=== PATIENT | male | born 1975 | race Caucasian/White ===

== ENCOUNTER 2019-01-11 14:20 | Outpatient (REF) | payer BC, SELFPAY ==
[2019-01-11 22:00] LABS: Bilirubin Negative (Negative); Blood Moderate (Negative); Clarity Clear; Glucose Negative (Negative); Ketones Negative (Negative); Leukocyte Esterase Moderate (Negative); Nitrite Positive (Negative); Specific Gravity 1.015 (1.005-1.025); Urobilinogen 0.2 EU/dL (Up TO 0.2); pH 7.5 (5-8)
[2019-01-11 22:48] LABS: WBC >50 HPF (0-5)
[2019-01-11 22:49] LABS: Epithelial Cells Negative HPF (Negative); Other Cells Few Renal (Negative); RBC Negative (0-2)
[2019-01-11 22:50] LABS: Bacteria Many HPF (Negative)
[2019-01-11 22:54] LABS: C & S Indicated? Yes; Casts Negative LPF (Negative); Crystals Negative HPF (Negative); Mucus Negative (Negative)
== END 2019-01-11 14:40 ==
LOC: NCHCN 14:20
PROVIDERS: PCP Nurse Practitioner Family; Visit Provider Nurse Practitioner Family
DX: R30.0 Dysuria (principal)
CPT/HCPCS: 81003; 81015; 87086

== ENCOUNTER 2019-02-22 14:53 | Outpatient (REF) | payer BC, SELFPAY ==
[2019-02-22 15:21] LABS: Bilirubin Negative (Negative); Blood Negative (Negative); Clarity Clear; Glucose Negative (Negative); Ketones Negative (Negative); Leukocyte Esterase Small (Negative); Nitrite Positive (Negative); Specific Gravity 1.025 (1.005-1.025); Urobilinogen 0.2 EU/dL (Up TO 0.2)
[2019-02-22 15:46] LABS: Bacteria Moderate HPF (Negative); C & S Indicated? C&S Done As Ordered; Casts Negative LPF (Negative); Crystals Negative HPF (Negative); Epithelial Cells Rare HPF (Negative); Mucus Trace (Negative); Other Cells Rare Renal (Negative); RBC Negative (0-2)
== END 2019-02-22 15:13 ==
LOC: NCHCN 14:53
PROVIDERS: PCP Nurse Practitioner Family; Visit Provider Nurse Practitioner Family
DX: R30.0 Dysuria (principal); Z87.440 Personal history of urinary (tract) infections
CPT/HCPCS: 81003; 81015; 87086

== ENCOUNTER 2019-12-19 21:10 | Inpatient (IN) | payer BC, SELFPAY ==
[2019-12-19] VITALS (7 sets, daily range): BP systolic 146–178; BP diastolic 59–82; PULSE 59–73; RESP 16; TEMP 36.7; O2SAT 95–100
--- NOTE | 2019-12-19 21:30 | DI.CT_ITS ---
EXAM: CT ABDOMEN PELVIS W CLINICAL HISTORY: RLQ pain and tenderness TECHNIQUE: Post IV contrast. Without oral contrast. COMPARISON: No exams were available for comparison FINDINGS: The appendix is dilated. There is stranding in the surrounding fat. There is a question of a small appendicolith at the base. There is a trace amount of adjacent fluid in the right pericolic gutter. There is no small bowel or colonic dilatation or wall thickening. There is no free air. The lung bases are clear. The heart size is normal. The liver shows mild fatty infiltration. Ther e is a 1 centimeter low-density lesion in the left lobe, too small to characterize. There is no bili kadi dilatation. The gallbladder, spleen, pancreas and adrenals are unremarkable. A tiny nonobstruct ing stone is noted in the right kidney. The aorta is normal in diameter. The urinary bladder is mariama ewhat distended. No mass or stones are seen. The prostate is unremarkable. There are no significan t bony abnormalities. IMPRESSION: Findings consistent with acute appendicitis. No abscess or perforation.
--- NOTE | 2019-12-19 21:36 | ED.GENADUL_ITS ---
Discharge Plan Disposition Patient Disposition: [facility] INPATIENT Condition: Serious Discharge Details Chief Complaint: Abd Prob Clinical Impression: Acute appendicitis, Acute urinary retention, Acute UTI Primary Care Provider: Beatrice Harrington ED Provider: Fredrick Hamilton Home Meds and New Rx's Prescriptions: No Action No Known Home Meds RF: 0 Medical Decision Making 44-year-old male presents with abdominal pain today worse over the past 2 hours and associated anorexia. Also with questionable blood in his stool. Patient is tender in his right lower quadrant with some rebound tenderness in that area. Abdomen not rigid. Negative Rovsing sign. Patient hemodynamically stable and does not appear septic. Labs reviewed and leukocytosis noted. Urinalysis concerning for UTI. Patient does have a history of intermittent urinary tract infections in the past. CT of the abdomen pelvis was interpreted by radiology: IMPRESSION: 1. Findings suspicious for acute appendicitis. 2. Tiny amount of free fluid in the right lower quadrant. No free air. 3. Small indeterminate lesion within the liver. 4. Tiny nonobstructing right renal calculus. 5. Distended bladder Plan to treat with metronidazole 500 mg IV and ceftriaxone 1 g IV. Patient also with urinary retention with greater than 800 cc noted on post void residual bladder scan by nursing. Nursing to Place Blandon catheter. I called and spoke with on-call surgeon, Dr. Fernandes, and we discussed ED presentation and course including diagnostic results. She recommends admission and will be placing admission orders. Care transitioned to Dr. Fernandes at 1120p at time of admission. HPI General Mode of arrival: ambulatory . Date/Time Provider Initiated Documentation: 12/19/19 21:22 . Limitations to Documentation: no limitations . Information obtained by: patient . HPI Narrative: 44-year-old male presents with chief complaint of abdominal pain. Patient notes abdominal pain started this morning and has persisted. Much worse over the past 2 hours. Patient states on car ride from [place] to [facility] just prior to arrival pain was much worse. Denies associated nausea or vomiting but does not have much of an appetite. He also states he thinks he had a small amount of blood in his stool earlier today. He states toilet water was red-tinged. Patient states he took ibuprofen earlier that did not significantly improve his pain. States that he has had intermittent urinary tract infections in the past. He states he has a urinary tract infection almost yearly. He did have some dysuria the other day that subsequently resolved. No increased urinary frequency or urgency. No hematuria. Related Data Home Medications Medication Instructions Recorded Confirmed Unknown [No Known Home Meds] 12/19/19 12/19/19 Allergies Allergy/AdvReac Type Severity Reaction Status Date / Time No Known Allergies Allergy Unverified 12/19/19 21:22 General Stated Complaint: Abd Prob WAYNE: 3 Review of Systems All systems reviewed & are unremarkable except as noted in HPI and below Constitutional Constitutional: Denies fever(s) Gastrointestinal Gastrointestinal: Reports as per HPI, Denies nausea and Denies vomiting Genitourinary Genitourinary: Reports as per HPI [facility] Social History Smoking/Tobacco Use Status: Never Drug use: Never Substance use type: does not use Do you feel safe at home: Yes Exam Const General: cooperative and no acute distress HENMT Mouth: moist mucous membranes Eyes Conjunctivae: normal conjunctivae Sclera: normal sclerae Resp Auscultation: clear to auscultation bilaterally, no rales, no rhonchi and no wheezes Cardio Jugular venous pressure: no JVD Rate: regular rate and not tachycardic Rhythm: regular rhythm GI Inspection: non-distended Palpation: soft, not firm, no guarding, no masses, not rigid and tender in the RLQ and with rebound tenderness Auscultation: normal bowel sounds Skin General skin exam: no rashes or lesions noted Neuro General: alert, awake and tone normal Extrem General: no edema Psych Appearance: grossly normal Mental Status: mental status grossly normal Course Vital Signs Vital signs: Vital Signs Temperature 36.7 C 12/19/19 21:14 Pulse 59 L 12/19/19 21:14 Respiratory Rate 16 12/19/19 21:14 Blood Pressure 163/70 H 12/19/19 21:14 Pulse Oximetry 100 12/19/19 21:14 Temperature 36.7 C 12/19/19 21:14 Temperature Source Skin 12/19/19 21:14 Pulse 59 L 12/19/19 21:14 Respiratory Rate 16 12/19/19 21:14 Respiratory Effort 12/19/19 21:14 Blood Pressure 163/70 H 12/19/19 21:14 Pulse Oximetry 100 12/19/19 21:14 Oxygen Delivery Method Room Air 03/02/20 21:14 Oxygen Flow Rate 0 12/19/19 21:14 Pain Level 8 12/19/19 21:14
[2019-12-19] MEDS: Lactated Ringers 1,000 ML 125 ML IV (21:45)
[2019-12-19 21:46] LABS: Abs Immature Grans 0.04 k/cumm (0.0-0.09); Absolute Basophil Count 0.03 k/cumm (0.0-0.2); Absolute Eosinophil Count 0.71 k/cumm (0.0-0.7); Absolute Monocyte Count 1.51 k/cumm (0.11-0.7); Basophils % 0.2; Eosinophils % 5.2; HCT 42.9 % (40.0-50.0); HGB 15.1 g/dL (13.5-17.5); Immature Grans % 0.3 %; Lymphocytes % 12.8; Mean Corp. HGB Concentration 35.2 g/dL (32.0-36.0); Mean Corpuscular Hemoglobin 28.8 pg (27.0-33.0); Mean Corpuscular Volume 81.9 fL (80-95); Mean Platelet Volume 9.8 fL (8.0-11.0); Monocytes % 11.1; Neutrophils % 70.4; Platelet Count 217 x1000/uL (130-400); RBC 5.24 m/cumm (4.50-6.00); RBC Distribution Width 13.1 % (11.8-14.1); White Blood Cell Count 13.62 k/cumm (4.4-10.8)
[2019-12-19] MEDS: Ondansetron 4 MG/2 ML VIAL IVP (21:46)
[2019-12-19 21:47] LABS: Absolute Lymphocyte Count 1.74 k/cumm (1.2-3.4); Absolute Neutrophil Count 9.59 k/cumm (1.2-6.7)
[2019-12-19] MEDS: Omnipaque 350 MG/ML 100 ML BTL IJ (21:53)
[2019-12-19 21:56] LABS: Lipase 152 U/L (73-393)
--- NOTE | 2019-12-19 21:57 | NUR.NOTE ---
Nursing Note: [id number]- Urine collected and sent to lab.
[2019-12-19 21:59] LABS: ALT 56 U/L (16-63); AST 26 U/L (15-37); Albumin 4.2 g/dL (3.4-5.0); Alkaline Phosphatase 77 U/L (46-116); Anion Gap 7.2 mmol/L (3-11); BUN 14 mg/dL (7-18); Bilirubin, Total 0.4 mg/dL (0.2-1.0); CO2 28.8 mmol/L (21.0-32.0); CREATININE 1.09 mg/dL (0.70-1.30); Calcium 8.6 mg/dL (8.5-10.1); Chloride 105 mmol/L (98-107); Diff Comment Agrees w/ Instrument; Glucose 106 mg/dL (74-106); Potassium 4.2 mmol/L (3.5-5.1); RBC Morphology Normal; Sodium 141 mmol/L (136-145); Total Protein 7.3 g/dL (6.4-8.2)
[2019-12-19 22:01] LABS: Bilirubin Negative (Negative); Blood Negative (Negative); Clarity Cloudy (Clear); Glucose Negative (Negative); Ketones Negative (Negative); Leukocyte Esterase Large (Negative); Nitrite Negative (Negative); Specific Gravity 1.025 (1.005-1.025); Urobilinogen 0.2 EU/dL (Up TO 0.2)
[2019-12-19] MEDS: Normal Saline - Diluent 50 ML VIAL IV (22:06)
[2019-12-19 22:11] LABS: Epithelial Cells Few HPF (Negative); WBC >50 HPF (0-5)
[2019-12-19 22:12] LABS: Bacteria Many HPF (Negative); C & S Indicated? Yes
--- NOTE | 2019-12-19 22:59 | DI.VRAD_ITS ---
Addendum created by Cl Pollock MD on 12/19/2019 11:11:41 PM EST THIS REPORT CONTAINS FINDINGS THAT MAY BE CRITICAL TO PATIENT CARE. The findings were verbally communicated via telephone conference with JOELLE RICHARD at 11:11 PM EST on 12/19/2019. The findings were acknowledged and understood. Initial report created on 12/19/2019 10:58:32 PM EST PROCEDURE INFORMATION: Exam: CT Abdomen And Pelvis With Contrast Exam date and time: 12/19/2019 9:32 PM Age: 44 years old Clinical indication: Abdominal pain; Localized; Right lower quadrant (rlq); Patient HX: Per PT: Vomiting all day; Rlq pain TECHNIQUE: Imaging protocol: Computed tomography of the abdomen and pelvis with intravenous contrast. COMPARISON: No relevant prior studies available. FINDINGS: Liver: A 1.2 cm nonspecific hypodensity is seen within the left hepatic lobe, series 4, image 20. Gallbladder and bile ducts: Normal. No calcified stones. No ductal dilation. Pancreas: Normal. No ductal dilation. Spleen: Normal. No splenomegaly. Adrenals: Normal. No mass. Kidneys and ureters: No hydronephrosis. Tiny nonobstructing right renal calculus. Stomach and bowel: No bowel obstruction. Appendix: The appendix is mildly dilated measuring 1.1 cm. There is probably a tiny appendicolith at the base. There is moderate adjacent fat stranding with a tiny amount of free fluid in the right lower quadrant. Intraperitoneal space: No free air. Vasculature: Unremarkable. No abdominal aortic aneurysm. Lymph nodes: Unremarkable. No enlarged lymph nodes. Bladder: The bladder is distended. Reproductive: Unremarkable as visualized. Bones/joints: Unremarkable. No acute fracture. Soft tissues: Unremarkable. IMPRESSION: 1. Findings suspicious for acute appendicitis. 2. Tiny amount of free fluid in the right lower quadrant. No free air. 3. Small indeterminate lesion within the liver. 4. Tiny nonobstructing right renal calculus. 5. Distended bladder Dictated and Authenticated by: Cl Pollock MD. Ordering:HERBERT Alcala MD
--- NOTE | 2019-12-19 23:20 | HPE_ITS ---
Date of service: 12/20/19 Time of Service: 07:30 Assessment and Plan Assessment and plan (1) Acute appendicitis: Status: Acute Assessment and plan: see CT pt will be taken for lap appy pre op rochephin Informed consent is obtained for the procedural (explained in simple layman's terms that the pt and/or family could understand) explaining risks vs benefits and alternatives to the procedure and consequences if we do not do the procedure. Risks include but are not limited to:bleeding,infections, pneumonia, blood clots/DVT/PE, anesthesia(aspiration, damage to teeth/airway/[place]/CVA//prolonged mechanical ventilation/PTX/IV infections), damage to bowel, bladder,blood vessels, ureters, bile ducts. Damage to solid organs requiring removal. Leakage from anastomosis requiring colostomy/ Wound i nfections requirng further surgery. stump appendicitis. Scarring and disfigurement. Subsequent bowel obstructions from scar tissue. Possible open procedure if minimaly invsive procedure is being attempted. (2) Acute urinary retention: Status: Acute (3) Acute UTI: Status: Acute History of Present Illness Consults Consult date: 12/20/19 Requesting physician: Fredrick Hamilton Narrative: pt came to the ED w/ RLQ pain. + nayse and fever. He has never had GI problems in the past. He denies any trauma pt could not urinate in the ED, so mendoza was placed. Unclear as to why he cannot void. He has not had problems in the past w/ voiding. His UA does show high amount of WBC's- unclear if this represents a UTI, or just from the appendix touching the ureter. WIll leave mendoza in place until appendectomy. [facility] Social History Smoking/Tobacco Use Status: Never Drug use: Never Substance use type: does not use Do you feel safe at home: Yes Meds Home Medications and Allergies Home Medications Medication Instructions Recorded Confirmed Type Unknown [No Known Home Meds] 12/19/19 12/19/19 History Allergies Allergy/AdvReac Type Severity Reaction Status Date / Time No Known Allergies Allergy Unverified 12/19/19 21:22 Exam Const General: cooperative, healthy appearing, comfortable, no acute distress, well developed and well groomed Nutritional Appearance: average body habitus and well nourished Orientation: alert, awake and oriented x3 [facility] Head: normal to inspection, normocephalic and atraumatic Ears: hearing grossly normal bilaterally and external ears normal General nose exam: external nose normal Face and sinus: normal facial exam and sinuses nontender Mouth: oral mucosae normal, lip normal, tongue normal and moist mucous membranes Teeth and gingiva: dentition normal Eyes General: appearance normal, both eyes and all related structures Conjunctivae: conjunctivae normal Sclera: sclerae normal Pupils: PERRL Neck Neck: normal visual inspection and full ROM Chest Chest: normal inspection of the chest Resp Effort & Inspection: normal respiratory effort, able to speak in complete sentences, no cough, no nasal flaring, not tachypneic and no use of accessory muscles Auscultation: clear to auscultation bilaterally, no rales, no rhonchi and no whe ezes Cardio Jugular venous pressure: no JVD Rate: regular rate Rhythm: regular rhythm GI Inspection: normal to inspection, no edema and non-distended Palpation: soft, no masses, nontender and No ascites Auscultation: normal bowel sounds Other: localized rlq rebound and guarding. sm umbilical hernia Skin General skin exam: no rashes or lesions noted Trauma: no lacerations or abrasions Neuro General: alert, oriented x3, oriented, gait normal, moves all extremities, no focal motor deficits and CN's II-XI intact bilaterally Cognition: normal cognition Speech: speech normal Gait: normal gait Motor: muscle tone normal throughout Extrem General: normal to inspection, full ROM and no clubbing, cyanosis or edema Psych Appearance: grossly normal and well kempt Mental Status: mental status grossly normal Speech and Movement: speech and movement normal Affect: normal affect Results Labs Result diagrams: 12/19/19 21:40 12/19/19 21:40 Labs: Laboratory Results - last 24 hr 12/19/19 12/19/19 12/19/19 21:40 21:40 21:40 WBC 13.62 H RBC 5.24 Hgb 15.1 Hct 42.9 MCV 81.9 MCH 28.8 MCHC 35.2 RDW 13.1 Plt Count 217 MPV 9.8 Immature Gran % 0.3 Neutrophils % 70.4 Lymphocytes % 12.8 Monocytes % 11.1 Eosinophils % 5.2 Basophils % 0.2 Absolute Neutrophils 9.59 H Absolute Lymphocytes 1.74 Absolute Monocytes 1.51 H Absolute Eosinophils 0.71 H Absolute Basophils 0.03 Differential Comment Agrees w/ instrument RBC Morphology Normal Sodium 141 Potassium 4.2 Chloride 105 Carbon Dioxide 28.8 Anion Gap 7.2 BUN 14 Creatinine 1.09 Estimated GFR/1.73 m2 >= 60.00 Glucose 106 Calcium 8.6 Total Bilirubin 0.4 AST 26 ALT 56 Alkaline Phosphatase 77 Total Protein 7.3 Albumin 4.2 Lipase 152 Urine Color Urine Clarity Urine pH Ur Specific [place] Urine Protein Urine Ketones Urine Blood Urine Nitrite Urine Bilirubin Urine Urobilinogen Ur Leukocyte Esterase Urine RBC Urine WBC Ur Epithelial Cells Urine Crystals Urine Bacteria Urine Mucus Ur Culture Indicated? Urine Glucose 12/19/19 21:50 WBC RBC Hgb Hct MCV MCH MCHC RDW Plt Count MPV Immature Gran % Neutrophils % Lymphocytes % Monocytes % Eosinophils % Basophils % Absolute Neutrophils Absolute Lymphocytes Absolute Monocytes Absolute Eosinophils Absolute Basophils Differential Comment RBC Morphology Sodium Potassium Chloride Carbon Dioxide Anion Gap BUN Creatinine Estimated GFR/1.73 m2 Glucose Calcium Total Bilirubin AST ALT Alkaline Phosphatase Total Protein Albumin Lipase Urine Color Yellow Urine Clarity Cloudy Urine pH 7.0 Ur Specific [place] 1.025 Urine Protein Negative Urine Ketones Negative Urine Blood Negative Urine Nitrite Negative Urine Bilirubin Negative Urine Urobilinogen 0.2 Ur Leukocyte Esterase Large H Urine RBC Not Applicable Urine WBC >50 H Ur Epithelial Cells Few Urine Crystals Not Applicable Urine Bacteria Many Urine Mucus Not Applicable Ur Culture Indicated? Yes Urine Glucose Negative Last Vital Signs Temp 36.7 C 12/19/19 21:14 Pulse 73 12/19/19 22:08 Resp 16 12/19/19 21:14 BP 178/82 H 12/19/19 22:08 Pulse Ox 98 12/19/19 22:08
[2019-12-19] MEDS: cefTRIAXone 1 GM/50 ML BAG IVPB (23:27)
[2019-12-19] MEDS: metroNIDAZOLE 500 MG/100 ML BAG 100 MG IVPB (23:55)
--- NOTE | 2019-12-19 23:58 | NUR.NOTE ---
Nursing Note: Pain medication offered, Pt states he doesn't think he needs any right now.
[2019-12-20] VITALS (22 sets, daily range): BP systolic 106–171; BP diastolic 54–77; PULSE 52–117; RESP 16–22; TEMP 36.3–38.5; O2SAT 92–100
[2019-12-20] MEDS: MORPHine 2 MG/ML SYR IVP (01:20)
[2019-12-20] MEDS: Normal Saline Flush 10 ML SYR IVP ×2 (01:21→08:02)
[2019-12-20] MEDS: Normal Saline 1,000 ML 125 ML IV ×2 (01:22→22:50)
[2019-12-20] MEDS: ACETAMINOPHEN 1,000 MG/100 ML BTL 400 MG IVPB ×3 (01:45→18:37)
[2019-12-20] MEDS: metroNIDAZOLE 500 MG/100 ML BAG 100 MG IVPB ×2 (08:02→16:51)
[2019-12-20] MEDS: Lactated Ringers 1,000 ML 125 ML IV (10:10)
[2019-12-20] MEDS: cefTRIAXone 1 GM/50 ML BAG IVPB (10:24)
[2019-12-20] MEDS: Bupivacaine 0.25% Pres-Free 30 ML VIAL (10:25)
[2019-12-20] MEDS: EPINEPHrine 1 MG/ML AMP pres-free (10:25)
--- NOTE | 2019-12-20 10:42 | INITIAL_ITS ---
Care Management Initial Assess REASON FOR HOSPITALIZATION:: Acute appendicitis, Acute urinary retention, Acute UTI-Laparoscopic Appendectomy PAST MEDICAL HISTORY/PAST SURGICAL HISTORY:: Tonsillectomy PREVIOUS FUNCTIONAL STATUS/SOCIAL/FAMILY SUPPORTS:: Felipe resides in [place] with his significant other, Katie and two children. He is independent at baseline in the community. CURRENT FUNCTIONAL STATUS:: Felipe was brought for surgery this morning, and was not available in the room for CM assessment. CM will continue to follow. ADVANCE DIRECTIVES:: None on file at [facility]. Has patient been provided with information about the portal?: No Did the patient sign up for the portal?: No CODE STATUS:: Full Code INSURANCE COVERAGE / FINANCIAL ISSUES:: BC/BS [place] CURRENT HOME/COMMUNITY SERVICES/EQUIPMENT:: No current services or equipment. PRIMARY CARE PHYSICIAN:: Beatrice Harrington POTENTIAL DISCHARGE NEEDS:: Follow up appointment with PCP. PATIENT/FAMILY EDUCATION NEEDS:: Review of discharge instructions, discuss Ask Me Three. ANTICIPATED BARRIERS TO DISCHARGE:: None identified. TRANSPORTATION:: Via private vehicle with his significant other, Katie. PLAN:: Felipe will return home when ready per MD. He will follow up with his PCP and plan of care as prescribed. He will transport via private vehicle with his significant other, Katie.
--- NOTE | 2019-12-20 11:01 | APP_PTH ---
PATIENT: Felipe Lanedros LOC: U#:[id number] AGE/SX: 44/M ROOM: RE12/19/[address]: Chelsi Fernandes : 1975 BED: A DIS: 12/21/2019 SPEC #: [id number] RECD: 12/20/19 12:52 STATUS: ELEANOR REQ #: [id number] CUONG: 12/20/19 11:[address]: Chelsi Fernandes DEPT: Surgical Specimen RECD BY: Germaine Raymond ENTERED: 12/20/19 12:53 SP TYPE: Appendix OTHR DR: Beatrice Harrington Tissues: 1 - APPENDIX NOT INCIDENTAL Procedures: GROSS AND MICRO LEVEL 3 Comments: [id number]
--- NOTE | 2019-12-20 11:45 | W.PM.OP ---
Date of service: 12/20/19 Time of Service: 11:45 Operative Note Operative Note DATE OF PROCEDURE: 12/20/19 PRE-OP DIAGNOSIS: acute appendicitis POST-OP DIAGNOSIS: other (Incidental umbilical hernia) retro cecal PROCEDURE: lindsay granadosy SURGEON: Virginia Christensen CIGAR MAKING MACHINE OPERATOR: Virginia Kilpatrick ANESTHESIA: [place]incy ESTIMATED BLOOD LOSS: 10 PATHOLOGY: other COMPLICATIONS: None Procedure Description: COMPLICATIONS: The patient tolerated the procedure well without complications. INDICATIONS: The patient has signs and symptoms compatible with acute appendicitis and is brought to the OR for laparoscopic appendectomy, possible open procedure. Informed consent is obtained for the procedural (explained in simple layman's terms that the pt and/or family could understand) explaining risks vs benefits and alternatives to the procedure and consequences if we do not do the procedure. Risks include but are not limited to:bleeding,infections, pneumonia, blood clots/DVT/PE, anesthesia(aspiration, damage to teeth/airway/[place]/CVA//prolonged mechanical ventilation/PTX/IV infections), damage to bowel, bladder,blood vessels, ureters. Damage to solid organs requiring removal. Infertility. Leakage from anastomosis requiring colostomy. Wound infections requirng further surgery. Scarring and disfigurement. Subsequent bowel obstructions from scar tissue. Possible open procedure if minimaly invsive procedure is being attempted. Abscess and stump appendicitis as well as others. DESCRIPTION OF PROCEDURE: The patient was brought to the operating room suite and placed in supine position. Anesthesia was administered per the Department of Anesthesia. A Blandon catheter and OG tube are placed. The patient was prepped and draped in the usual sterile fashion using ChloraPrep scrub solution. Pause for the cause was done. 30 mL of 1% buffered was used for local anesthetization. Does have a small umbilical hernia. A small incision was made with #11 blade in the umbilicus. Hemostat was used to dissect down into the abdomen and fingers placed there is no adhesions #5 trochars placed in the abdomen insufflation was begun. Camera inserted through the port shows no damage to underlying structures. Bowel, liver and stomach that are visualized are normal in appearance. Pelvic organs are not visualized. The appendix is inflamed, erythematous,enlarged, & distened, but does not appear to have been ruptured. There is no purulent drainage in the pelvis. A 12 mm port was then placed in the suprapubic position under direct visualization following creation of a local field block as well as a second 5 mm port in the LLQ. The appendix is very retrocecal. A scissors is used to open the white line of Toldt, and the cecum is reflected medially. the Peritoneum was taken down with a combination of sharp and blunt dissection. Eventually the appendix is freed up. And we are able to carry out procedure. Urinary retention and the white cells in the urine are probably from the appendix being adjacent to the ureter. The appendix is elevated and a rent dissected into the mesentery. The base of the appendix is healthy and will hold aliyah. A Endo-MONICA stapler is placed across the base of the appendix and fired and 2nd stapler placed across the mesentery and fired. The appendix is placed in a bag and brought out. There is no bleeding or enteric leakage from the staple lines. The pt does not require a drain. The abdomen was copiously irrigated with a liter of saline. All saline is evacuated. The scope and ports are removed. Pneumoperitoneum is evacuated. The fascia under the 12 mm port is closed with 0 Vicryl. The small umbilical hernia was closed with 2 stitches of 0 Vicryl. There was no bleeding from the port sites as when they removed and the pneumoperitoneum evacuated. The wounds were copiously irrigated and closed in 2 layers with 4-0 Monocryl. Sterile tape and sterile dressings are applied. The patient tolerated the procedure without complication, transferred to the recovery room in stable condition. Family was apprised of patient condition. VIRGINIA CHRISTENSEN DO Cc: _
[2019-12-20] MEDS: fentaNYL 100 MCG/2 ML VIAL IVP (11:50)
[2019-12-20] MEDS: Droperidol 5 MG/2 ML VIAL 0.625 MG IVP (11:55)
--- NOTE | 2019-12-20 12:55 | W.PM.DS.N ---
Documented by User: Chelsi Fernandes DO 12/22/19 10:34 Date of service: 12/20/19 DS: Diagnosis Discharge Diagnosis (1) Acute appendicitis: Status: Acute (2) Acute urinary retention: Status: Deleted (3) Acute UTI: Status: Acute Discharge Plan Disposition Patient Disposition: HOME Condition: Serious Discharge Details Chief Complaint: Abd Prob Clinical Impression: Acute appendicitis, Acute urinary retention, Acute UTI Reason For Visit: APPENDICITIS Admit Date/Time: 12/19/19 23:24 Admit Provider: Chelsi Fernandes Attending Provider: Chelsi Fernandes Primary Care Provider: Beatrice Harrington ED Provider: Fredrick Hamilton Hospital Course Hospital Course: Mr. Landeros is a pleasant 44 year old male POD #1 s/p Lap. Appi for acute appendicitis. He has done well after surgery. He is eating and drinking without N/V. His pain is well controlled on tylenol and ibuprofen. He did have some de-saturations but has a history of sleep apnea. This morning he is off O2 and doing well. No cough or chest congestion. Patient also noted to have a possible UTI. Mixed Elyse >100,000 count. HAs history of urinary retention and UTI's. CXR done and was normal Patient will be discharged on antibiotics to cover his appendicitis as well as his ? UTI. referal made to Urology as well Home Meds and New Rx's Prescriptions: New ciprofloxacin HCl 500 mg tablet 500 mg PO BID Qty: 12 RF: 0 metronidazole 500 mg tablet 500 mg PO Q8H Qty: 18 RF: 0 acetaminophen [Tylenol Extra Strength] 500 mg tablet 500 mg PO Q6H PRN (Reason: fever or pain) Qty: 30 RF: 0 ibuprofen 600 mg tablet 600 mg PO Q6H PRN (Reason: fever or pain) Qty: 30 RF: 0 Discharge Instructions Instructions: Laparoscopic Appendectomy (DC) Additional Instructions: Keep an ice bag on the incision. 20 minutes on and 20 minutes off. Ice keeps the swelling down and swelling causes pain. Make sure you wrap the ice pack in a towel and don't apply directly to the skin. -No driving x 72hrs or of you are taking narcotic pain medications. -If you have aliyah or sutures in place, they will be removed at your clinic appointment in 7-10 days. -Follow-up with Dr. Fernandes in 1 week. -soft/regular diet -no straining to move bowels -pain meds are very constipating: if you do not move your bowels daily take a dose of OTC milk of magnesia -It is ok to shower. No bathe, soaking, swimming or hot tubs -Keep wound clean and dry. Wash incision with soap and water daily. Pat dry, don't rub. -You may find that your appetite is smaller. Eat 3-6 small meals throughout the day. It is important to drink lots of water after surgery, 6-10 glasses a day. -If you were given an incentive spirometry (\breathing trial management associate), continue to do this 10x/hour while awake. -We do want you up walking, at least 5-6 times per day. This is very important to prevent pneumonia and blood clots. You can climb stairs, take them slowly. -No lifting over 5 pounds. This is very important to avoid developing a hernia in your incision. -You may find that you are very tired after surgery- this is normal. -please do not smoke for a minimum of 72 hours after surgery. -If you notice: fever > 100.5, chest pain or shortness of breath, redness/swelling/bleeding from the incision, pain that is becoming worse- go to the ER. Stand Alone Forms: Nursing Discharge Form Referrals: Adali Waggoner NP [NURSE PRACTITIONER] - 12/26/19 3:00 pm Chelsi Fernandes DO [OSTEOPATHIC DOCTOR] - 12/28/19 9:30 am Activity:: no lifting >20 lb x 2 weeks Equipment/Supplies:: No Equipment Needed Diet:: As Tolerated Discharge Orders Discharge Orders: Discharge Order (Routine); Ordered 12/21/19 Ordered By: Dinorah Madden Discharge Data Discharge Date/Time-TO BE ENTERED AT DEPARTURE: 12/21/19 12:05 DS: Data Vitals/I&O Vitals and I&O: Vital Signs Temperature 36.8 C 12/20/19 12:44 Temperature Source Tympanic 12/20/19 07:35 Pulse 63 12/20/19 12:44 Pulse Rhythm Regular 12/20/19 01:24 Respiratory Rate 17 12/20/19 12:44 Respiratory Effort 12/20/19 01:24 Respiratory Depth Normal 12/20/19 01:24 Respiratory Pattern Normal 12/20/19 01:24 Blood Pressure 128/60 12/20/19 12:44 Blood Pressure Mean 72 12/20/19 00:31 Pulse Oximetry 94 L 12/20/19 12:44 Respiratory End-tidal CO2 37 12/20/19 12:30 Oxygen Delivery Method Room Air 12/20/19 12:44 Oxygen Flow Rate 0 12/20/19 12:44 Pain Level 1 12/20/19 12:44 Intake & Output 12/19/19 12/20/19 12/20/19 23:59 11:59 23:59 Intake Total 1050 / 1050 2520 / 2520 Output Total 1025 / 1025 1675 / 1675 Balance 845 / 845 Weight 104.326 kg 104.5 kg Intake: IV 1050 / 1050 2520 / 2520 Output: Urine 1025 / 1025 1675 / 1675 Other: Urine Color Light Fabiana Yellow Urine Appearance Sediment Clear Urine Odor None Comment Dr Hamilton informed. Orders given Emesis Description None None Voiding Methods Indwelling Catheter Data Completed and Pending Labs on day of discharge: Labs from last 24 hours 12/19/19 12/19/19 12/19/19 21:50 21:40 21:40 WBC 13.62 H RBC 5.24 Hgb 15.1 Hct 42.9 MCV 81.9 MCH 28.8 MCHC 35.2 RDW 13.1 Plt Count 217 MPV 9.8 Immature Gran % 0.3 Neutrophils % 70.4 Lymphocytes % 12.8 Monocytes % 11.1 Eosinophils % 5.2 Basophils % 0.2 Absolute Neutrophils 9.59 H Absolute Lymphocytes 1.74 Absolute Monocytes 1.51 H Absolute Eosinophils 0.71 H Absolute Basophils 0.03 Differential Comment Agrees w/ instrument RBC Morphology Normal Sodium 141 Potassium 4.2 Chloride 105 Carbon Dioxide 28.8 Anion Gap 7.2 BUN 14 Creatinine 1.09 Estimated GFR/1.73 m2 >= 60.00 Glucose 106 Calcium 8.6 Total Bilirubin 0.4 AST 26 ALT 56 Alkaline Phosphatase 77 Total Protein 7.3 Albumin 4.2 Lipase Urine Color Yellow Urine Clarity Cloudy Urine pH 7.0 Ur Specific [place] 1.025 Urine Protein Negative Urine Ketones Negative Urine Blood Negative Urine Nitrite Negative Urine Bilirubin Negative Urine Urobilinogen 0.2 Ur Leukocyte Esterase Large H Urine RBC Not Applicable Urine WBC >50 H Ur Epithelial Cells Few Urine Crystals Not Applicable Urine Bacteria Many Urine Mucus Not Applicable Ur Culture Indicated? Yes Urine Glucose Negative 12/19/19 21:40 WBC RBC Hgb Hct MCV MCH MCHC RDW Plt Count MPV Immature Gran % Neutrophils % Lymphocytes % Monocytes % Eosinophils % Basophils % Absolute Neutrophils Absolute Lymphocytes Absolute Monocytes Absolute Eosinophils Absolute Basophils Differential Comment RBC Morphology Sodium Potassium Chloride Carbon Dioxide Anion Gap BUN Creatinine Estimated GFR/1.73 m2 Glucose Calcium Total Bilirubin AST ALT Alkaline Phosphatase Total Protein Albumin Lipase 152 Urine Color Urine Clarity Urine pH Ur Specific [place] Urine Protein Urine Ketones Urine Blood Urine Nitrite Urine Bilirubin Urine Urobilinogen Ur Leukocyte Esterase Urine RBC Urine WBC Ur Epithelial Cells Urine Crystals Urine Bacteria Urine Mucus Ur Culture Indicated? Urine Glucose Preliminary micro results at discharge 12/19/19 21:50 Urine Culture - Preliminary Urine - Reflex from Ua Gram Positive Elyse,Mixed PFSH Medical History (Updated 12/21/19 @ 10:00 by Dinorah Madden MD) Sleep apnea (Acute) Urinary retention with incomplete bladder emptying (Acute) Surgical History (Updated 12/21/19 @ 11:23 by Dinorah Maddne MD) S/P laparoscopic appendectomy (Acute ~12/19/19) Social History Smoking/Tobacco Use Status: Never Drug use: Never Substance use type: does not use Do you feel safe at home: Yes Documented by User: Dinorah Madden MD 12/21/19 11:24 Date of service: 12/21/19 Time of Service: 09:59 Discharge Plan Disposition Patient Disposition: HOME Condition: Serious Discharge Details Chief Complaint: Abd Prob Clinical Impression: Acute appendicitis, Acute urinary retention, Acute UTI Reason For Visit: APPENDICITIS Admit Date/Time: 12/19/19 23:24 Admit Provider: Chelsi Fernandes Attending Provider: Chelsi Fernandes Primary Care Provider: Beatrice Harrington ED Provider: Fredrick Hamilton Hospital Course Hospital Course: Mr. Landeros is a pleasant 44 year old male POD #1 s/p Lap. Appi for acute appendicitis. He has done well after surgery. He is eating and drinking without N/V. His pain is well controlled on tylenol and ibuprofen. He did have some de-saturations but has a history of sleep apnea. This morning he is off O2 and doing well. No cough or chest congestion. Patient also noted to have a possible UTI. Mixed Elyse >100,000 count. HAs history of urinary retention and UTI's. CXR done and was normal Patient will be discharged on antibiotics to cover his appendicitis as well as his ? UTI. referal made to Urology as well Home Meds and New Rx's Prescriptions: New ciprofloxacin HCl 500 mg tablet 500 mg PO BID Qty: 12 RF: 0 metronidazole 500 mg tablet 500 mg PO Q8H Qty: 18 RF: 0 acetaminophen [Tylenol Extra Strength] 500 mg tablet 500 mg PO Q6H PRN (Reason: fever or pain) Qty: 30 RF: 0 ibuprofen 600 mg tablet 600 mg PO Q6H PRN (Reason: fever or pain) Qty: 30 RF: 0 Discharge Instructions Instructions: Laparoscopic Appendectomy (DC) Additional Instructions: Keep an ice bag on the incision. 20 minutes on and 20 minutes off. Ice keeps the swelling down and swelling causes pain. Make sure you wrap the ice pack in a towel and don't apply directly to the skin. -No driving x 72hrs or of you are taking narcotic pain medications. -If you have aliyah or sutures in place, they will be removed at your clinic appointment in 7-10 days. -Follow-up with Dr. Fernandes in 1 week. -soft/regular diet -no straining to move bowels -pain meds are very constipating: if you do not move your bowels daily take a dose of OTC milk of magnesia -It is ok to shower. No bathe, soaking, swimming or hot tubs -Keep wound clean and dry. Wash incision with soap and water daily. Pat dry, don't rub. -You may find that your appetite is smaller. Eat 3-6 small meals throughout the day. It is important to drink lots of water after surgery, 6-10 glasses a day. -If you were given an incentive spirometry (\breathing trial management associate), continue to do this 10x/hour while awake. -We do want you up walking, at least 5-6 times per day. This is very important to prevent pneumonia and blood clots. You can climb stairs, take them slowly. -No lifting over 5 pounds. This is very important to avoid developing a hernia in your incision. -You may find that you are very tired after surgery- this is normal. -please do not smoke for a minimum of 72 hours after surgery. -If you notice: fever > 100.5, chest pain or shortness of breath, redness/swelling/bleeding from the incision, pain that is becoming worse- go to the ER. Stand Alone Forms: Nursing Discharge Form Referrals: Adali Waggoner NP [NURSE PRACTITIONER] - 12/26/19 3:00 pm Chelsi Fernandes DO [OSTEOPATHIC DOCTOR] - 12/28/19 9:30 am Activity:: no lifting >20 lb x 2 weeks Equipment/Supplies:: No Equipment Needed Diet:: As Tolerated Discharge Orders Discharge Orders: Discharge Order (Routine); Ordered 12/21/19 Ordered By: Dinorah Madden Discharge Data Discharge Date/Time-TO BE ENTERED AT DEPARTURE: 12/21/19 12:05 DS: Summary Status at Discharge Functional status at discharge: independent ambulation Overall status at discharge: patient is progressing back to baseline Mental Status: mental status grossly normal Speech and Movement: speech and movement normal Mood: congruent mood Affect: normal affect Exam Psych Mental Status: mental status grossly normal Speech and Movement: speech and movement normal Mood: congruent mood Affect: normal affect [facility] Medical History (Updated 12/21/19 @ 10:00 by Dinorah Madden MD) Sleep apnea (Acute) Urinary retention with incomplete bladder emptying (Acute) Surgical History (Updated 12/21/19 @ 11:23 by Dinorah Madden MD) S/P laparoscopic appendectomy (Acute ~12/19/19) Social History Smoking/Tobacco Use Status: Never Drug use: Never Substance use type: does not use Do you feel safe at home: Yes
[2019-12-20] MEDS: Ketorolac 30 MG/ML VIAL IVP ×2 (15:18→21:29)
--- NOTE | 2019-12-20 18:21 | PGE_ITS ---
Date of Service Date of service: 12/20/19 Time of Service: 15:00 Assessment and Plan Assessment and plan (1) Acute appendicitis: Status: Acute Assessment and plan: -urinary retention resolved -pt does have a hx of UTI's - so will continue abx for another does. Rocephin should cover. -cont hydration pulm toilet encourage walking routine postOp care pt still tired/sleepy and mild nausea. Will keep in hosp overn night. Subjective Subjective Interval history since last seen: pt is feeling better. Nausea has subsided. He has been able to turinate x2. He is tolerating sips of liquids and c/o dry mouth. He is just started to wake up from anesthesia. He does admit he is very tired- he got no sleep last night. He is still on 1l O2. encourage pulm toilet and ambulation. Exam [facility] Head: normal to inspection Other: no eye redness/pain/swelling. no dental issues. no jaw pain. no sore throat. Neck Other: no neck pain Chest Chest: normal inspection of the chest Resp Effort & Inspection: normal respiratory effort and able to speak in complete sentences Auscultation: clear to auscultation bilaterally, no rales, no rhonchi and no wheezes Cardio Rate: regular rate Rhythm: regular rhythm GI Inspection: normal to inspection and incision (c/d/i. few BS ) Extrem General: normal to inspection and normal exam except as noted Objective Objective Clinical Data: Abnormal lab results 12/19/19 12/19/19 Range/Units 21:40 21:50 WBC 13.62 H (4.4-10.8) k/cumm Absolute Neutrophils 9.59 H (1.2-6.7) k/cumm Absolute Monocytes 1.51 H (0.11-0.7) k/cumm Absolute Eosinophils 0.71 H (0.0-0.7) k/cumm Ur Leukocyte Esterase Large H (Negative) Urine WBC >50 H (0-5) HPF Vital Signs Temperature 36.3 C L 12/20/19 15:50 Temperature Source Tympanic 12/20/19 15:50 Pulse 69 12/20/19 15:50 Pulse Rhythm Regular 12/20/19 01:24 Respiratory Rate 19 12/20/19 15:50 Respiratory Effort 03/03/20 01:24 Respiratory Depth Normal 12/20/19 01:24 Respiratory Pattern Normal 12/20/19 01:24 Blood Pressure 126/74 12/20/19 15:50 Blood Pressure Mean 72 12/20/19 00:31 Pulse Oximetry 95 12/20/19 15:50 Respiratory End-tidal CO2 37 12/20/19 12:30 Oxygen Delivery Method Nasal Cannula 12/20/19 15:50 Oxygen Flow Rate 0.5 12/20/19 15:50 Pain Level 4 12/20/19 15:50 Intake & Output 12/19/19 12/20/19 12/20/19 23:59 11:59 23:59 Intake Total 1050 / 1050 2620 / 2620 Output Total 1025 / 1025 1675 / 2475 800 / 2475 Balance 945 / 145 -800 / 145 Weight 104.326 kg 104.5 kg Intake: IV 1050 / 1050 2620 / 2620 Output: Urine 1025 / 1025 1675 / 2475 800 / 2475 Other: Urine Color Light Fabiana Yellow Yellow Urine Appearance Sediment Clear Clear Urine Odor None Normal Comment Dr Hamilton informed. Orders given Emesis Description None None Voiding Methods Indwelling Catheter Toilet Laboratory Results WBC 13.62 k/cumm (4.4-10.8) H 12/19/19 21:40 RBC 5.24 m/cumm (4.50-6.00) 12/19/19 21:40 Hgb 15.1 g/dL (13.5-17.5) 12/19/19 21:40 Hct 42.9 % (40.0-50.0) 12/19/19 21:40 MCV 81.9 fL (80-95) 12/19/19 21:40 MCH 28.8 pg (27.0-33.0) 12/19/19 21:40 MCHC 35.2 g/dL (32.0-36.0) 12/19/19 21:40 RDW 13.1 % (11.8-14.1) 12/19/19 21:40 Plt Count 217 x1000/uL (130-400) 12/19/19 21:40 MPV 9.8 fL (8.0-11.0) 12/19/19 21:40 Immature Gran % 0.3 % 12/19/19 21:40 Neutrophils % 70.4 12/19/19 21:40 Lymphocytes % 12.8 12/19/19 21:40 Monocytes % 11.1 12/19/19 21:40 Eosinophils % 5.2 12/19/19 21:40 Basophils % 0.2 12/19/19 21:40 Absolute Neutrophils 9.59 k/cumm (1.2-6.7) H 12/19/19 21:40 Absolute Lymphocytes 1.74 k/cumm (1.2-3.4) 12/19/19 21:40 Absolute Monocytes 1.51 k/cumm (0.11-0.7) H 12/19/19 21:40 Absolute Eosinophils 0.71 k/cumm (0.0-0.7) H 12/19/19 21:40 Absolute Basophils 0.03 k/cumm (0.0-0.2) 12/19/19 21:40 Differential Comment Agrees w/ instrument 12/19/19 21:40 RBC Morphology Normal 12/19/19 21:40 Sodium 141 mmol/L (136-145) 12/19/19 21:40 Potassium 4.2 mmol/L (3.5-5.1) 12/19/19 21:40 Chloride 105 mmol/L (98-107) 12/19/19 21:40 Carbon Dioxide 28.8 mmol/L (21.0-32.0) 12/19/19 21:40 Anion Gap 7.2 mmol/L (3-11) 12/19/19 21:40 BUN 14 mg/dL (7-18) 12/19/19 21:40 Creatinine 1.09 mg/dL (0.70-1.30) 12/19/19 21:40 Estimated GFR/1.73 m2 >= 60.00 (mL/min/1.73m2) 12/19/19 21:40 Glucose 106 mg/dL (74-106) 12/19/19 21:40 Calcium 8.6 mg/dL (8.5-10.1) 12/19/19 21:40 Total Bilirubin 0.4 mg/dL (0.2-1.0) 12/19/19 21:40 AST 26 U/L (15-37) 12/19/19 21:40 ALT 56 U/L (16-63) 12/19/19 21:40 Alkaline Phosphatase 77 U/L (46-116) 12/19/19 21:40 Total Protein 7.3 g/dL (6.4-8.2) 12/19/19 21:40 Albumin 4.2 g/dL (3.4-5.0) 12/19/19 21:40 Lipase 152 U/L (73-393) 12/19/19 21:40 Urine Color Yellow (Yellow) 12/19/19 21:50 Urine Clarity Cloudy (Clear) 12/19/19 21:50 Urine pH 7.0 (5-8) 12/19/19 21:50 Ur Specific [place] 1.025 (1.005-1.025) 12/19/19 21:50 Urine Protein Negative mg/dL (Negative) 12/19/19 21:50 Urine Ketones Negative mg/dL (Negative) 12/19/19 21:50 Urine Blood Negative (Negative) 12/19/19 21:50 Urine Nitrite Negative (Negative) 12/19/19 21:50 Urine Bilirubin Negative (Negative) 12/19/19 21:50 Urine Urobilinogen 0.2 EU/dL (Up TO 0.2) 12/19/19 21:50 Ur Leukocyte Esterase Large (Negative) H 12/19/19 21:50 Urine RBC Not Applicable 12/19/19 21:50 Urine WBC >50 HPF (0-5) H 12/19/19 21:50 Ur Epithelial Cells Few HPF (Negative) 12/19/19 21:50 Urine Crystals Not Applicable 12/19/19 21:50 Urine Bacteria Many HPF (Negative) 12/19/19 21:50 Urine Mucus Not Applicable 12/19/19 21:50 Ur Culture Indicated? Yes 12/19/19 21:50 Urine Glucose Negative mg/dL (Negative) 12/19/19 21:50
--- NOTE | 2019-12-21 | DI.RAD_ITS ---
EXAM: XR CHEST 2V PA LATERAL CLINICAL HISTORY: SOB post OP/low O2 sats TECHNIQUE: 2D digital imaging was performed. COMPARISON: No exams were available for comparison FINDINGS: MEDIASTINUM: Normal. HEART: Normal. PULMONARY VASCULATURE: Normal. LUNGS: Clear. PLEURAL SPACE: No pleural effusion or pneumothorax. BONE:Normal. OTHER FINDINGS:Normal. IMPRESSION: No acute pulmonary findings. DATA REPOSITORY: RADIATION DOSE DELIVERED:
[2019-12-21] MEDS: metroNIDAZOLE 500 MG/100 ML BAG 100 MG IVPB ×2 (00:08→08:12)
[2019-12-21] MEDS: ACETAMINOPHEN 1,000 MG/100 ML BTL 400 MG IVPB ×2 (02:50→10:50)
[2019-12-21] MEDS: Ketorolac 30 MG/ML VIAL IVP ×2 (04:34→10:51)
[2019-12-21] MEDS: Normal Saline Flush 10 ML SYR IVP ×4 (04:34→11:44)
[2019-12-21 06:45] VITALS: RESP 18
[2019-12-21 07:07] LABS: Abs Immature Grans 0.03 k/cumm (0.0-0.09); Absolute Basophil Count 0.01 k/cumm (0.0-0.2); Absolute Eosinophil Count 0.01 k/cumm (0.0-0.7); Absolute Lymphocyte Count 1.11 k/cumm (1.2-3.4); Absolute Monocyte Count 0.87 k/cumm (0.11-0.7); Basophils % 0.1; Eosinophils % 0.1; HCT 36.4 % (40.0-50.0); HGB 12.6 g/dL (13.5-17.5); Immature Grans % 0.2 %; Lymphocytes % 8.6; Mean Corp. HGB Concentration 34.6 g/dL (32.0-36.0); Mean Corpuscular Volume 83.7 fL (80-95); Monocytes % 6.7; Neutrophils % 84.3; Platelet Count 195 x1000/uL (130-400); RBC 4.35 m/cumm (4.50-6.00); RBC Distribution Width 12.8 % (11.8-14.1); White Blood Cell Count 12.93 k/cumm (4.4-10.8)
[2019-12-21 07:21] LABS: C-Reactive Protein 7.74 mg/dL (0.0-0.3)
[2019-12-21 08:53] VITALS: BP 125/67; PULSE 54; RESP 22; TEMP 37; O2SAT 96
--- NOTE | 2019-12-21 09:39 | W.PM.PROGNOT ---
Date of Service Date of service: 12/21/19 Time of Service: 09:39 Assessment and Plan Assessment and plan (1) Acute appendicitis: Status: Acute Assessment and plan: A\\ 44 year old male POD #1 s/p lap. appi Doing well. Leukocytosis slowly improving Eating and drinking without issue Had some recorded de-saturation overnight while awake. Has hx of sleep apnea P\\ CXR- if normal will d/c home on antibiotics to cover both appendicitis and UTI Qualifiers: Acute appendicitis type: with localized peritonitis Appendicitis abscess presence: without abscess Appendicitis gangrene presence: without gangrene Appendicitis perforation presence: without perforation Qualified Code(s): K35.30 - Acute appendicitis with localized peritonitis, without perforation or gangrene (2) Urinary retention with incomplete bladder emptying: Status: Acute Assessment and plan: A\\ Chronic issue. Last saw a urologist 10 years ago P\\ Referral to Urology for outpatient follow up Subjective Subjective Interval history since last seen: Mr. Landeros is doing well. Has eaten this morning. Did not eat dinner because he didn't like the sandwich they send up from kitchen. Had pudding and yogurt last night. Mild discomfort around incisions when he gets up out of bed. Nursing staff concerned about his de-sating overnight when awake. Not on O2 at this time. Patient does have a history of sleep apnea. is concerned about his urinary retention. This is a chronic issue. He saw a urologist about 10 years ago and was told his bladder doesn't contract properly. he has had several UTI's because of it. Exam Const General: cooperative, comfortable and no acute distress Orientation: alert and oriented x3 HENMT Head: normocephalic and atraumatic Resp Effort & Inspection: normal respiratory effort Auscultation: clear to auscultation bilaterally Cardio Rate: regular rate Rhythm: regular rhythm Heart Sounds: no gallops, no murmurs and no rubs GI Inspection: incision (c/d/i) Palpation: soft, no hepatosplenomegaly and nontender Auscultation: normal bowel sounds Objective Objective Clinical Data: Abnormal lab results 12/21/19 12/21/19 Range/Units 06:41 06:41 WBC 12.93 H (4.4-10.8) k/cumm RBC 4.35 L (4.50-6.00) m/cumm Hgb 12.6 L D (13.5-17.5) g/dL Hct 36.4 L (40.0-50.0) % Absolute Neutrophils 10.90 H (1.2-6.7) k/cumm Absolute Lymphocytes 1.11 L (1.2-3.4) k/cumm Absolute Monocytes 0.87 H (0.11-0.7) k/cumm C-Reactive Protein 7.74 H (0.0-0.3) mg/dL Vital Signs Temperature 98.6 F 12/21/19 08:53 Temperature Source Temporal Artery Scan 12/21/19 08:53 Pulse 54 L 12/21/19 08:53 Pulse Rhythm Regular 12/21/19 07:30 Respiratory Rate 22 12/21/19 08:53 Respiratory Effort 12/21/19 07:30 Respiratory Depth Normal 12/21/19 07:30 Respiratory Pattern Normal 12/21/19 07:30 Blood Pressure 125/67 12/21/19 08:53 Blood Pressure Mean 72 12/20/19 00:31 Pulse Oximetry 96 12/21/19 08:53 Respiratory End-tidal CO2 37 12/20/19 12:30 Oxygen Delivery Method Room Air 12/21/19 08:53 Oxygen Flow Rate 0 12/21/19 08:53 Pain Level 2 12/21/19 08:53 Intake & Output 12/20/19 12/20/19 12/21/19 11:59 23:59 11:59 Intake Total 2720 / 3460 740 / 3460 160 / 160 Output Total 1675 / 2975 1300 / 2975 850 / 850 Balance 1045 / 485 -560 / 485 -690 / -690 Weight 230 lb 6.129 oz Intake: IV 2720 / 2920 200 / 2920 100 / 100 Oral 540 / 540 60 / 60 Output: Urine 1675 / 2975 1300 / 2975 600 / 600 Post Void Residual 250 / 250 Other: Urine Color Yellow Straw Light Luis Felipe Urine Appearance Clear Clear Cloudy Urine Odor None Normal Normal Comment HAD VOIDED JUST PRIOR TO 3AM 400CC SLIGHTLY CLOUDY LUIS FELIPE URINE. BLADDER SCANNER DID NOT WORK, HAD TO FIND OTHER AND IN USE BY OTHER. SO BIT OVER 1/2 HR FROM VOID TO SCAN. THEN PT VOIDED AGAIN 250CC AND SCANNED AGAIN FOR AVG IF 145 (190, 78, 168). Emesis Description None None Voiding Methods Indwelling Catheter Toilet Laboratory Results WBC 12.93 k/cumm (4.4-10.8) H 12/21/19 06:41 RBC 4.35 m/cumm (4.50-6.00) L 12/21/19 06:41 Hgb 12.6 g/dL (13.5-17.5) L D 12/21/19 06:41 Hct 36.4 % (40.0-50.0) L 12/21/19 06:41 MCV 83.7 fL (80-95) 12/21/19 06:41 MCH 29.0 pg (27.0-33.0) 12/21/19 06:41 MCHC 34.6 g/dL (32.0-36.0) 12/21/19 06:41 RDW 12.8 % (11.8-14.1) 12/21/19 06:41 Plt Count 195 x1000/uL (130-400) 12/21/19 06:41 MPV 10.0 fL (8.0-11.0) 12/21/19 06:41 Immature Gran % 0.2 % 12/21/19 06:41 Neutrophils % 84.3 12/21/19 06:41 Lymphocytes % 8.6 12/21/19 06:41 Monocytes % 6.7 12/21/19 06:41 Eosinophils % 0.1 12/21/19 06:41 Basophils % 0.1 12/21/19 06:41 Absolute Neutrophils 10.90 k/cumm (1.2-6.7) H 12/21/19 06:41 Absolute Lymphocytes 1.11 k/cumm (1.2-3.4) L 12/21/19 06:41 Absolute Monocytes 0.87 k/cumm (0.11-0.7) H 12/21/19 06:41 Absolute Eosinophils 0.01 k/cumm (0.0-0.7) 12/21/19 06:41 Absolute Basophils 0.01 k/cumm (0.0-0.2) 12/21/19 06:41 Differential Comment Agrees w/ instrument 12/19/19 21:40 RBC Morphology Normal 12/19/19 21:40 Sodium 141 mmol/L (136-145) 12/19/19 21:40 Potassium 4.2 mmol/L (3.5-5.1) 12/19/19 21:40 Chloride 105 mmol/L (98-107) 12/19/19 21:40 Carbon Dioxide 28.8 mmol/L (21.0-32.0) 12/19/19 21:40 Anion Gap 7.2 mmol/L (3-11) 12/19/19 21:40 BUN 14 mg/dL (7-18) 12/19/19 21:40 Creatinine 1.09 mg/dL (0.70-1.30) 12/19/19 21:40 Estimated GFR/1.73 m2 >= 60.00 (mL/min/1.73m2) 12/19/19 21:40 Glucose 106 mg/dL (74-106) 12/19/19 21:40 Calcium 8.6 mg/dL (8.5-10.1) 12/19/19 21:40 Total Bilirubin 0.4 mg/dL (0.2-1.0) 12/19/19 21:40 AST 26 U/L (15-37) 12/19/19 21:40 ALT 56 U/L (16-63) 12/19/19 21:40 Alkaline Phosphatase 77 U/L (46-116) 12/19/19 21:40 C-Reactive Protein 7.74 mg/dL (0.0-0.3) H 12/21/19 06:41 Total Protein 7.3 g/dL (6.4-8.2) 12/19/19 21:40 Albumin 4.2 g/dL (3.4-5.0) 12/19/19 21:40 Lipase 152 U/L (73-393) 12/19/19 21:40 Urine Color Yellow (Yellow) 12/19/19 21:50 Urine Clarity Cloudy (Clear) 12/19/19 21:50 Urine pH 7.0 (5-8) 12/19/19 21:50 Ur Specific [place] 1.025 (1.005-1.025) 12/19/19 21:50 Urine Protein Negative mg/dL (Negative) 12/19/19 21:50 Urine Ketones Negative mg/dL (Negative) 12/19/19 21:50 Urine Blood Negative (Negative) 12/19/19 21:50 Urine Nitrite Negative (Negative) 12/19/19 21:50 Urine Bilirubin Negative (Negative) 12/19/19 21:50 Urine Urobilinogen 0.2 EU/dL (Up TO 0.2) 12/19/19 21:50 Ur Leukocyte Esterase Large (Negative) H 12/19/19 21:50 Urine RBC Not Applicable 12/19/19 21:50 Urine WBC >50 HPF (0-5) H 12/19/19 21:50 Ur Epithelial Cells Few HPF (Negative) 12/19/19 21:50 Urine Crystals Not Applicable 12/19/19 21:50 Urine Bacteria Many HPF (Negative) 12/19/19 21:50 Urine Mucus Not Applicable 12/19/19 21:50 Ur Culture Indicated? Yes 12/19/19 21:50 Urine Glucose Negative mg/dL (Negative) 12/19/19 21:50
[2019-12-21] MEDS: cefTRIAXone 1 GM/50 ML BAG IVPB (10:06)
[2019-12-21] MEDS: Milk of Magnesia 30 ML CUP PO (10:51)
--- NOTE | 2019-12-21 16:30 | PDOC.CMDIS ---
LACE Index Scoring Tool - Questions: Length of Stay (in days): 2 Acuity (Admit via E.D.?): Yes E.D. Visits: 1 - Answers: Total Score: 6 Risk of Readmission: Low Risk Care Management Discharge Reason for Hospitalization: Acute appendicitis, Acute urinary retention, Acute UTI-Laparoscopic Appendectomy Discharge Plan: Felipe will return home when ready per MD. He will follow up with his PCP and plan of care as prescribed. He will transport via private vehicle with his significant other, Katie. Patient/Family Education Needs: Review discharge instructions, discuss Ask Me Three.
== END 2019-12-21 12:05 | disposition home or self-care (01) | DRG 342 ==
LOC: ER 12-20 → MS 12-20 00:44
PROVIDERS: Admitting Provider Surgery; Emergency Provider Student in an Organized Health Care Education/Training Program; PCP Nurse Practitioner Family; Visit Provider Surgery
PROC: 0DTJ4ZZ Resection of Appendix, Percutaneous Endoscopic Approach (ICD-10-PCS; CPT 44970; principal; 2019-12-20 09:00)
DX: K35.80 Unspecified acute appendicitis (principal); N39.0 Urinary tract infection, site not specified; N99.89 Other postprocedural complications and disorders of genitourinary system; R33.8 Other retention of urine; K42.9 Umbilical hernia without obstruction or gangrene; Z87.440 Personal history of urinary (tract) infections
CPT/HCPCS: 44970; 36415; 51702; 80053; 83690; 96361; 96365; 96367; 96375; 99222; 99239; 99285; NC; 71046; 74177; 81003; 81015; 85025; 86140; 87086; 88304; 99284; J0131; J0171; J0696; J1100; J1790; J1885; J2270; J2405; J3010; J3490

== ENCOUNTER 2019-12-26 11:33 | Outpatient (CLI) | payer BC, SELFPAY ==
[2019-12-26 12:09] LABS: Abs Immature Grans 0.12 k/cumm (0.0-0.09); Absolute Eosinophil Count 0.64 k/cumm (0.0-0.7); Absolute Monocyte Count 0.72 k/cumm (0.11-0.7); Basophils % 0.5; Eosinophils % 5.8; HCT 44.8 % (40.0-50.0); HGB 15.7 g/dL (13.5-17.5); Immature Grans % 1.1 %; Lymphocytes % 19.1; Mean Corpuscular Hemoglobin 28.4 pg (27.0-33.0); Mean Corpuscular Volume 81.2 fL (80-95); Mean Platelet Volume 9.7 fL (8.0-11.0); Monocytes % 6.6; Neutrophils % 66.9; Platelet Count 280 x1000/uL (130-400); RBC 5.52 m/cumm (4.50-6.00); RBC Distribution Width 13.2 % (11.8-14.1); White Blood Cell Count 10.97 k/cumm (4.4-10.8)
[2019-12-26 12:11] LABS: Absolute Basophil Count 0.05 k/cumm (0.0-0.2); Absolute Neutrophil Count 7.34 k/cumm (1.2-6.7)
[2019-12-26 13:02] LABS: Bilirubin Negative (Negative); Blood Negative (Negative); Clarity Clear (Clear); Glucose Negative (Negative); Ketones Negative (Negative); Leukocyte Esterase Negative (Negative); Nitrite Negative (Negative); Urobilinogen 0.2 EU/dL (Up TO 0.2)
== END 2019-12-26 11:53 ==
PROVIDERS: PCP Nurse Practitioner Family; Visit Provider Surgery
DX: K35.80 Unspecified acute appendicitis (principal); R10.31 Right lower quadrant pain; R33.9 Retention of urine, unspecified; N39.0 Urinary tract infection, site not specified; Z87.440 Personal history of urinary (tract) infections
CPT/HCPCS: 36415; 81003; 85025; 86140

== ENCOUNTER 2019-12-28 02:18 | Outpatient (CLI) | payer BC, SELFPAY ==
--- NOTE | 2019-12-28 06:00 | DI.US_ITS ---
EXAM: US RENAL CLINICAL HISTORY: urinary retention with flank pain,R33.9. TECHNIQUE: Bland scale, color and spectral Doppler were used. COMPARISON: No exams were available for comparison FINDINGS: Renal size in cm: Right: 10.4 left: 11.3 Echogenicity: Normal Hydronephrosis: No Cyst or mass: No Nephrolithiasis: No Prostate volume 20 cc. Bladder:Normal Prevoid vol:686 Postvoid vol:20 IMPRESSION: Small postvoid residual, otherwise negative. DATA REPOSITORY:
== END 2019-12-28 02:38 ==
PROVIDERS: PCP Nurse Practitioner Family; Visit Provider Nurse Practitioner Gerontology
DX: R33.8 Other retention of urine (principal); R10.31 Right lower quadrant pain
CPT/HCPCS: 76770

== ENCOUNTER 2020-02-23 08:37 | Outpatient (CLI) | payer BC, SELFPAY ==
[2020-02-24 09:42] LABS: PSA, Screening 0.9 ng/mL (0.0-2.5)
== END 2020-02-23 08:57 ==
PROVIDERS: PCP Nurse Practitioner Family; Visit Provider Nurse Practitioner Gerontology
DX: N40.1 Benign prostatic hyperplasia with lower urinary tract symptoms (principal); R33.9 Retention of urine, unspecified; Z12.5 Encounter for screening for malignant neoplasm of prostate
CPT/HCPCS: 36415; 84153

== ENCOUNTER 2020-09-17 13:27 | Outpatient (REF) | payer BC, SELFPAY ==
[2020-09-17 20:58] LABS: HCT 41.7 % (40.0-50.0); HGB 14.3 g/dL (13.5-17.5); MCH 28.4 pg (27.0-33.0); MCHC 34.3 % (32.0-36.0); MCV 82.7 fL (80-95); Platelet Count 228 10^3/uL (130-400); RBC 5.04 10^6/uL (4.36-5.78); RDW 12.5 % (11.8-14.1); RDW-SD 37.5 fL; WBC 7.38 10^3/uL (4.4-10.8)
[2020-09-17 21:25] LABS: Anion Gap 5.5 mmol/L (3-11); BUN 13 mg/dL (7-18); CO2 26.5 mmol/L (21.0-32.0); CREATININE 1.21 mg/dL (0.70-1.30); Calcium 8.7 mg/dL (8.5-10.1); Calculated LDL 158 mg/dL (<100); Chloride 106 mmol/L (98-107); Cholesterol 216 mg/dL (<200); Glucose 93 mg/dL (74-106); HDL Cholesterol 38 mg/dL (40-60); Potassium 4.4 mmol/L (3.5-5.1); Sodium 138 mmol/L (136-145); TSH (W/Ref FT4) 1.52 uIU/mL (0.36-3.74); Triglyceride 100 mg/dL (<150)
== END 2020-09-17 13:47 ==
LOC: NCHCN 13:27
PROVIDERS: PCP Nurse Practitioner Family; Visit Provider Nurse Practitioner Family
DX: R13.10 Dysphagia, unspecified (principal); R03.0 Elevated blood-pressure reading, without diagnosis of hypertension; R00.2 Palpitations; R51.9 Headache, unspecified; F45.8 Other somatoform disorders
CPT/HCPCS: 80048; 80061; 85027; 84443

== ENCOUNTER 2020-10-05 03:20 | Outpatient (CLI) | payer BC, SELFPAY ==
[2020-10-08 17:09] LABS: COVID-19 RT-PCR Result NEGATIVE (Negative)
== END 2020-10-05 03:40 ==
PROVIDERS: PCP Nurse Practitioner Family; Visit Provider Surgery
DX: Z11.59 Encounter for screening for other viral diseases (principal); Z01.818 Encounter for other preprocedural examination
CPT/HCPCS: U0003

== ENCOUNTER 2020-10-10 09:20 | Day surgery (SDC) | payer BC, SELFPAY ==
--- NOTE | 2020-10-10 07:04 | ENDO_ITS ---
Date of service: 10/10/20 Time of Service: 10:49 Endoscopy Report DATE OF PROCEDURE: 10/10/20 PRE-OP DIAGNOSIS: Dysphagia, GERD POST-OP DIAGNOSIS: same PROCEDURE: EGD with biopsies SURGEON: Dinorah Madden ANESTHESIA: other (General/ASA 2/ Hortensia Newman CRNA) ESTIMATED BLOOD LOSS: 3 PATHOLOGY: other (duodenal bx, gastric bx and distal esophageal bx) COMPLICATIONS: None DISPOSITION: same day INDICATIONS: Mr. Landeros is an 44-year-old gentleman who was seen in the office today for dysphagia for the last 6 months. He also has a history of heartburn, burning in his chest and intermittent cough. The symptoms have slightly improved on 20 mg of omeprazole twice a day. His history is also significant for sleep apnea. He does not have a CPAP machine at this time. He is trying to lose weight to help with that. He also has had intermittent palpitations as far back as 2014. Initially felt to be due to stress and anxiety. Palpitations were discussed with Nick Cordero CRNA and he did not feel that the patient needed a cardiac work-up. We discussed the EGD procedure. We reviewed the risks benefits and complications. We reviewed Covid testing as well as quarantine requirements. We also talked about dietary modifications and weight loss which would also help reflux. He is currently attempting to lose weight. Risks, benefits and complications have been reviewed. Complications include but are not limited to bleeding, pain, perforation, sore throat, aspiration, and adverse reaction to the medications. Questions were entertained and answered to their satisfaction and they wished to proceed. No guarantees were given or implied. COVID-19 testing explained to the patient. Reason for test reviewed. Quarantine per state requirements reviewed with patient. Patient understands and agrees to testing. We will proceed with EGD under sedation FINDINGS: mild inflammation in the duodenal bulb, mild gastritis and mild esophagitis. No strictures or scar tissue noted PROCEDURE DESCRIPTION: After informed consent was obtained the patient was take to the procedure room and placed in a supine position. Monitors were applied and a time out was done. The patients name, date of , procedure type, allergies to medications and metal in their body was reviewed. A bite block was placed and the patient was sedated. Once sedated and comfortable the gastroscope was advanced through the oropharynx which was grossly normal into the esophagus. The proximal and mid- esophagus were normal. In the distal esophagus there was mild inflammation noted. The scope was advanced into the stomach and through the pylorus into the 3rd portion of the duodenum. The 3rd and second portion of the duodenum was noted to be normal. There was mild inflammation of the 1st portion of the duodenum. Biopsies were done. The scope was retracted back into the stomach. There was mild inflammation noted and biopsies were done to rule out H. pylori. There were no ulcers. The scope was retroflexed. The cardia and fundus were noted to be normal. There was no hiatal hernia noted. The scope was retracted back into the esophagus and biopsies were done of the GE junction to rule out Desir's. The Z line was regular. The GE junction was at 38 cm. The scope was removed and the patient was woken up and taken back to [facility] in stable condition. Follow up: 2 weeks in the office. I will add Carafate for 14 days
--- NOTE | 2020-10-10 07:05 | W.PM.DSUDISC ---
Discharge Plan Disposition Patient Disposition: HOME Condition: Good Discharge Details Reason For Visit: EGD Attending Provider: Dinorah Madden Primary Care Provider: Beatrice Harrington Home Meds and New Rx's Prescriptions: New sucralfate [Carafate] 1 gram tablet 1 g PO QID Qty: 56 RF: 0 Continued omeprazole 20 mg capsule,delayed release(DR/EC) 20 mg PO BID RF: 0 tamsulosin 0.4 mg capsule 0.4 mg PO DAILY Qty: 90 RF: 3 acetaminophen [Tylenol Extra Strength] 500 mg tablet 500 mg PO Q6H PRN (Reason: fever or pain) Qty: 30 RF: 0 ibuprofen 600 mg tablet 600 mg PO Q6H PRN (Reason: fever or pain) Qty: 30 RF: 0 Discharge Instructions Instructions: Diet for Stomach Ulcers and Gastritis (ED), Duodenitis (DC), Gastritis (DC), GERD (Gastroesophageal Reflux Disease) (DC) Additional Instructions: Findings: mild inflammation of the small bowel, stomach, and esophagus Follow up: 2 weeks Please call if you develop: fevers >101.5 Nausea or Vomiting Abdominal pain that is not transient DAY SURGERY UNIT POST ENDOSCOPY INSTRUCTIONS 1. Because there will be medication in your system for the next 24 hours, you may feel a little sleepy. Your coordination will be affected. Therefore: a. Do not drive or operate dangerous equipment for 24 hours. b. Do not drink alcohol beverages for 24 hours (not even beer). c. Plan to go home and rest for the day. 2. Generally there are no restrictions on your activity after a day or so has gone by, but you may feel a bit fatigued for a few days. 3 After you arrive home you may have a light meal and return to a normal diet as you can tolerate it without feeling sick to your stomach. 4. After surgery, you may feel pain or discomfort. This should be only transient, but if it persists please contact your doctor. 5. If there are any questions regarding the findings of your procedure, please feel free to contact your doctor. 6. If you are unable to contact your doctor with a problem, contact the hospital at [phone]. 7. Continue all your regular medications unless directed otherwise. I understand the above instructions and have no questions. Signature of Patient or Responsible Adult Escort Date/Time Name of Responsible Adult Escort Signature of Nurse Date/Time Referrals: Dinorah Madden MD [ [facility] STAFF PHYSICIAN] - 10/26/20 11:00 am Activity:: Activity as Tolerated Diet:: As Tolerated Discharge Orders Discharge Orders: Discharge Order (Routine); Ordered 10/10/20 Ordered By: Dinorah Madden
[2020-10-10 09:17] VITALS: BP 124/71; PULSE 74; RESP 20; TEMP 36.9; O2SAT 95
[2020-10-10] MEDS: Lactated Ringers 1,000 ML 80 ML IV (09:48)
--- NOTE | 2020-10-10 10:40 | STOM_PTH ---
PATIENT: Felipe Landeros LOC: [facility] U#:[id number] AGE/SX: 44/M ROOM: RE10/10/[address]: Dinorah Madden MD : 1975 BED: DIS: 10/10/2020 SPEC #: [id number] RECD: 10/10/20 12:43 STATUS: ELEANOR REQ #: [id number] CUONG: 10/10/20 10:[address]: Dinorah Madden DEPT: Surgical Specimen RECD BY: Germaine Raymond ENTERED: 10/10/20 12:45 SP TYPE: STOMACH OTHR DR: Beatrice Harrington Tissues: 1 - BIOPSY BOWEL 2 - STOMACH BIOPSY 3 - ESOPHAGUS BIOPSY Procedures: GROSS AND MICRO LEVEL 4 Comments: [id number]
[2020-10-10 11:22] VITALS: BP 107/70; PULSE 64; RESP 18; TEMP 36.6; O2SAT 97
== END 2020-10-10 12:03 | disposition home or self-care (01) ==
PROVIDERS: PCP Nurse Practitioner Family; Visit Provider Surgery
PROC: 0DJ68ZZ Inspection of Stomach, Via Natural or Artificial Opening Endoscopic (ICD-10-PCS; CPT 43235; principal; 2020-10-10 10:15)
DX: R13.10 Dysphagia, unspecified (principal); K21.00 Gastro-esophageal reflux disease with esophagitis, without bleeding; K22.10 Ulcer of esophagus without bleeding; K22.70 Barrett's esophagus without dysplasia; K31.89 Other diseases of stomach and duodenum; K29.70 Gastritis, unspecified, without bleeding; K29.80 Duodenitis without bleeding; G47.33 Obstructive sleep apnea (adult) (pediatric); F45.8 Other somatoform disorders
CPT/HCPCS: 43239; 88305; J2001

== ENCOUNTER 2020-10-22 15:06 | Outpatient (REF) | payer BC, SELFPAY | END 2020-10-22 15:26 | LOC: NCHCN 15:06 | PROVIDERS: PCP Nurse Practitioner Family; Visit Provider Nurse Practitioner Family | DX: R30.0 Dysuria (principal) | CPT/HCPCS: 87086 ==

== ENCOUNTER 2021-10-31 14:17 | Outpatient (REF) | payer BC, SELFPAY ==
[2021-10-31 15:20] LABS: Calculated LDL 172 mg/dL (<100); Cholesterol 236 mg/dL (<200); HDL Cholesterol 40 mg/dL (40-60); Magnesium 2.1 mg/dL (1.8-2.4); Triglyceride 123 mg/dL (<150); Vitamin B12 857 pg/mL (193-986)
== END 2021-10-31 14:18 | disposition home or self-care (01) ==
LOC: NCHCN 14:17
PROVIDERS: PCP Nurse Practitioner Family; Visit Provider Nurse Practitioner Family
DX: E78.5 Hyperlipidemia, unspecified (principal); E66.3 Overweight; R33.9 Retention of urine, unspecified; K21.9 Gastro-esophageal reflux disease without esophagitis; G47.30 Sleep apnea, unspecified
CPT/HCPCS: 80061; 82607; 83735

== ENCOUNTER 2022-04-02 17:52 | Outpatient (REF) | payer BC, SELFPAY | END 2022-04-02 17:53 | disposition home or self-care (01) | LOC: NCHCN 17:52 | PROVIDERS: PCP Nurse Practitioner Family; Visit Provider Nurse Practitioner Family | DX: Z87.440 Personal history of urinary (tract) infections (principal) | CPT/HCPCS: 87086 ==

== ENCOUNTER 2023-01-12 10:35 | Outpatient (REF) | payer BC, SELFPAY ==
[2023-01-12 15:52] LABS: Anion Gap 8.6 mmol/L (3-11); BUN 18 mg/dL (7-18); CO2 26.4 mmol/L (21.0-32.0); CREATININE 1.1 mg/dL (0.70-1.30); Calcium 9.6 mg/dL (8.5-10.1); Chloride 104 mmol/L (98-107); Estimated GFR 82.81 (mL/min/1.73m2); Glucose 98 mg/dL (74-106); Magnesium 2.2 mg/dL (1.8-2.4); Potassium 4.9 mmol/L (3.5-5.1); Sodium 139 mmol/L (136-145); Vitamin B12 510 pg/mL (193-986)
[2023-01-12 19:24] LABS: Hemoglobin A1C 5.4 % (<5.7)
== END 2023-01-12 10:36 | disposition home or self-care (01) ==
LOC: NCHCN 10:35
PROVIDERS: PCP Nurse Practitioner Family; Visit Provider Nurse Practitioner Family
DX: E78.5 Hyperlipidemia, unspecified (principal); F41.9 Anxiety disorder, unspecified; R60.0 Localized edema; K21.9 Gastro-esophageal reflux disease without esophagitis; K22.70 Barrett's esophagus without dysplasia; R51.9 Headache, unspecified; G47.30 Sleep apnea, unspecified; J30.2 Other seasonal allergic rhinitis
CPT/HCPCS: 80048; 82607; 83036; 83735

== ENCOUNTER 2023-06-24 15:28 | Outpatient (REF) | payer BC, SELFPAY ==
[2023-06-24 21:26] LABS: Epithelial Cells Rare HPF (Negative); RBC Negative HPF (0-2); WBC >50 HPF (0-5)
[2023-06-24 21:27] LABS: Bacteria Many HPF (Negative); C & S Indicated? C&S Done As Ordered; Crystals Many Amorphous HPF (Negative); Mucus Negative (Negative)
== END 2023-06-24 15:29 | disposition home or self-care (01) ==
LOC: NCHCN 15:28
PROVIDERS: PCP Nurse Practitioner Family; Visit Provider Physician Assistant Medical
DX: R30.0 Dysuria (principal)
CPT/HCPCS: 87077; 81015; 87086; 87186

== ENCOUNTER 2023-09-29 12:26 | Outpatient (REF) | payer BC, SELFPAY | END 2023-09-29 12:27 | disposition home or self-care (01) | LOC: NCHCN 12:26 | PROVIDERS: PCP Nurse Practitioner Family; Visit Provider Nurse Practitioner Family | DX: R33.9 Retention of urine, unspecified (principal); Z87.440 Personal history of urinary (tract) infections | CPT/HCPCS: 87086 ==

== ENCOUNTER 2024-06-09 11:17 | Outpatient (REF) | payer BC, SELFPAY ==
--- OUTSIDE RECORDS SUMMARY | 2024-06-09 11:24 | XMS_ITS | Encounter Summary ---
Author Organization [facility] Address [address] [place] [address] Care Team Providers Care Manager Of Information Name Role Phone Unavailable Primary Care Provider Unavailabl e Encounter Details Date Type Department Care Team (Latest Contact Info) Description 11/10/2000 16:02 [facility] Hospital Encounter [address] [address] Christiano Mar MD [address] [place] [address] [phone] Discharge Disposition: Auto Discharge Social History Tobacco Use Types Packs/Day Years Used Date Smoking Tobacco: Never Assessed Sex and Gender Information Value Date Recorded Sex Assigned at Not on file Gender Identity Male 02/13/2020 16:12 EDT Sexual Orientation Not on file documented as of this encounter Discharge Disposition Disposition Code Departure Means Destination Auto Discharge documented in this encounter Plan of Treatment Not on file documented as of this encounter Visit Diagnoses Not on filedocumented in this encounter
--- OUTSIDE RECORDS SUMMARY | 2024-06-09 11:24 | XMS_ITS | Encounter Summary ---
Author Organization [facility] Address [address] [place] [address] Care Team Providers Care Shampoo Technician Name Role Phone Unavailable Primary Care Provider Unavailabl e Encounter Details Date Type Department Care Team (Latest Contact Info) Description 01/13/2000 12:03 EST Hospital Encounter [facility] [address] [place] [address] Christiano Mar MD [address] [place] [address] [phone] Discharge Disposition: Auto Discharge Social History Tobacco [...] on file documented as of this encounter Procedures Procedure Name Priority Date/Time Associated Diagnosis Comments MR THORACIC SPINE WO CONTRAST Routine 01/13/2000 13:42 EST MR CERVICAL SPINE WO CONTRAST Routine 01/13/2000 13:42 EST documented in this encounter Results * MR CERVICAL SPINE WO CONTRAST (01/13/2000 13:42 EST) Anatomical Region Laterality Modality Other 01/13/2000 13:4 2 EST Impressions 08/28/2009 12:24 EST IMPRESSION: #1: Broad based central disc herniation at C6-7 that does not cause spinal stenosis. No other abnormality is identified in the cervical spine. #2: Normal MRI of the thoracic spine. The attending radiologist has reviewed the images and concurs with the findings. D: 01-13-00 T: 01-14-00 /am Narrative 08/28/2009 12:24 EST NECK AND UPPER BACK PAIN R/O DISC HERNIATION 01-13-00: MRI OF THE THORACIC AND CERVICAL SPINES: HISTORY: Neck and upper back pain. Rule out disc herniation. TECHNIQUE: MRI of the cervical spine is performed with sagittal T1, sagittal T2 and axial gradient echo sequences. An MRI of the thoracic spine is performed with sagittal T1, sagittal T2, axial T1 and axial T2 sequences. No comparison studies are available. FINDINGS: The cervical spine MRI demonstrates a broad based central disc herniation at C6-7. The disc herniation minimally indents the ventral aspect of the subarachnoid space but does not cause significant central stenosis. The bony canal remains wide at all levels. No abnormal cord signal is identified in the cervical spine. The craniocervical junction anatomy is normal. The thoracic spine MRI demonstrates preservation of the vertebral body and disc space heights. No spinal stenosis, abnormal marrow or abnormal cord signal is identified. Procedure Note Santino May MD / Sheryl De Souza MD - 08/28/2009 NECK AND UPPER BACK PAIN R/O DISC HERNIATION 01-13-00: MRI OF THE THORACIC AND CERVICAL SPINES: HISTORY: Neck and upper back pain. Rule out disc herniation. TECHNIQUE: MRI of the cervical spine is performed with sagittal T1, sagittal T2 and axial gradient echo sequences. An MRI of the thoracic spine is performed with sagittal T1, sagittal T2, axial T1 and axial T2 sequences. No comparison studies are available. FINDINGS: The cervical spine MRI demonstrates a broad based central disc herniation at C6-7. The disc herniation minimally indents the ventral aspect of the subarachnoid space but does not cause significant central stenosis. The bony canal remains wide at all levels. No abnormal cord signal is identified in the cervical spine. The craniocervical junction anatomy is normal. The thoracic spine MRI demonstrates preservation of the vertebral body and disc space heights. No spinal stenosis, abnormal marrow or abnormal cord signal is identified. IMPRESSION IMPRESSION: #1: Broad based central disc herniation at C6-7 that does not cause spinal stenosis. No other abnormality is identified in the cervical spine. #2: Normal MRI of the thoracic spine. The attending radiologist has reviewed the images and concurs with the findings. D: 01-13-00 T: 01-14-00 /am Christiano Mar MD [facility] [place] [facility] ORDER[facility] * MR THORACIC SPINE WO CONTRAST (01/13/2000 13:42 EST) Anatomical Region Laterality Modality Other 01/13/2000 13:4 2 EST Narrative 08/28/2009 12:24 EST NECK AND UPPER BACK PAIN R/O DISC HERNIATION Procedure Note Santino May MD / Sheryl De Souza MD - 08/28/2009 NECK AND UPPER BACK PAIN R/O DISC HERNIATION Christiano Mar MD [facility] ORDERAB L[facility] documented in this encounter Visit Diagnoses Not on filedocumented in this encounter
--- OUTSIDE RECORDS SUMMARY | 2024-06-09 11:24 | XMS_ITS | Encounter Summary ---
Author Organization [facility] Address [address] [place] [address] Care Team Providers Care Communications Clerk Name Role Phone Unknown, Provider Primary Care Provider Beatrice Harrington Primary Care Provider Encounter Details Date Type Department Care Team (Late st Contact Info) Description 02/23/2020 Lab Requisition [facility] Pathology & Laboratory Medicine - [address] [id number] Outr Resulting Lab, Provider Social History Tobacco Use Types Packs/Day Years Used Date Smoking Tobacco: Never Assessed Sex and Gender Information Value Date Recorded Sex Assigned at Not on file Gender Identity Male 02/13/2020 16:12 EDT Sexual Orientation Not on file documented as of this encounter Plan of Treatment Not on file documented as of this encounter Procedures Procedure Name Priority Date/Time Associated Diagnosis Comments PSA TOTAL, DIAGNOSTIC Routine 02/23/2020 8:50 EDT documented in this encounter Results * PSA TOTAL, DIAGNOSTIC (02/23/2020 8:50 EDT) PSA 0.9 0.0 - 2.5 ng/mL 02/24/2020 9:37 EDT [facility] Blood VENOUS BLOOD / Unknown 02/23/2020 8:50 EDT 02/23/2020 16:20 EDT Narrative [facility] - 02/24/2020 9:37 EDT NOTE: Serum PSA concentration should not be interpreted as absolute evidence for the presence or absence of malignant disease. Assayed on Siemens ADVIA [email or web address] XPT using chemiluminescent technology.??Values obtained by using different assay methods cannot be used interchangeably. Provider Outr Resulting Lab CHEMISTRY & BLOOD GAS ORDERABLES [facility] [address] [place] [address] documented in this encounter Visit Diagnoses Not on filedocumented in this encounter Care Teams Communications Clerk Relationship Specialty Start Date End Date Unknown, Provider, PCP - General 02/14/16 10/09/20 Beatrice Harrington FNP [address] [place] [phone] PCP - General 10/10/20 documented as of this encounter
--- OUTSIDE RECORDS SUMMARY | 2024-06-09 11:24 | XMS_ITS | Clinical Summary ---
Author Organization [facility] Address [address] [place] [address] Care Team Providers Care Expressive Music Therapist Name Role Phone Beatrice Harrington SOLAR MANAGER Primary Care Provider [phone] Social History Tobacco Use Types Packs/Day Years Used Date Smoking Tobacco: Never Assessed Sex and Gender Information Value Date Recorded Sex Assigned at Not on file Gender Identity Male 02/13/2020 16:12 EDT Sexual Orientation Not on file Plan of Treatment Health Maintenance Due Date Last Done Comments Hepatitis B Vaccine (1 of 3 - 19+ 3-dose series) 10/13 COVID-19 Vaccine ( season) 2023 Hepatitis C Screen Completed 11/19/2000 Procedures Procedure Name Priority Date/Time Associated Diagnosis Comments HEPATITIS C AB W REFLEX TO HCV RNA BY PCR Routine 11/19/2000 17:00 EST from Last 3 Months or Most Recently Relevant to Health Maintenance Results * HEPATITIS C ANTIBODY (11/19/2000 17:00 EST) Hepatitis C Ab Neg [facility] 11/19/2000 17:0 0 EST 11/20/2000 11:44 EST Christiano Mar MD CHEMISTRY & BLO OD GAS ORDERABLES [facility] [address] [place] [address] from Last 3 Months or Most Recently Relevant to Health Maintenance Care Teams Expressive Music Therapist Relationship Specialty Start Date End Date Beatrice Harrington FNP [address] [phone] PCP - General 10/10/20
--- OUTSIDE RECORDS SUMMARY | 2024-06-09 11:24 | XMS_ITS | Encounter Summary ---
Author Organization [facility] Address [address] [place] [address] Care Team Providers Care Green Prize Packer Name Role Phone Unknown, Provider Primary Care Provider Beatrice Harrington Primary Care Provider Encounter Details Date Type Department Care Team (Late st Contact Info) Description 12/20/2019 Lab Requisition [facility] Pathology & Laboratory Medicine - [address] [address] Chelsi Fernandes, DO [address] [place] [address] Encounter for other general examination Social History Tobacco Use Types Packs/Day Years Used Date Smoking Tobacco: Never Assessed Sex and Gender Information Value Date Recorded Sex Assigned at Not on file Gender Identity Male 02/13/2020 16:12 EDT Sexual Orientation Not on file documented as of this encounter Plan of Treatment Not on file documented as of this encounter Procedures Procedure Name Priority Date/Time Associated Diagnosis Comments SURGICAL PATHOLOGY Today 12/20/2019 11 :01 EST Encounter for other general examination documented in this encounter Results * SURGICAL PATHOLOGY (12/20/2019 11:01 EST) Final Diagnosis A. APPENDIX, APPENDECTOMY: - Acute suppurative appendicitis and periappendicitis. 12/22/2019 13:02 EST [facility] at 1302 Clinical History Appendicitis 12/22/2019 13:02 [facility] Attestation By the signature below, the attending physician certifies that they have 1) personally conducted a gross and/or microscopic examination of the described specimen(s), and/or personally interpreted the results of laboratory testing of the described specimen(s), and 2) personally rendered or confirmed the above diagnosis. 12/22/2019 13:02 [facility] at 1302 Gross Description A. Received in formalin labelled with proper patient identification (initials M, S) and appendix is a 5.5 cm in length appendix stapled along its margin. Abundant periappendiceal adipose tissue is present. The appendix averages 0.9 cm in diameter. The serosal surfaces are dusky samuel-brown with exudate coating. An obvious wall perforation is not identified. The wall ranges from 0.2 to 0 0.4 cm in thickness and is focally hemorrhagic. The lumen contains a small amount of partially clotted blood. Fecaliths are not identified. Fly Rail Operator sections are submitted in A1 to include the proximal margin, which is inked blue. Lina Bowman 12/21/2019 10:20 12/22/2019 13:02 [facility] Scanned Images 12/22/2019 13:02 [facility] Tissue ENTIRE APPENDIX / Unknown 12/20/2019 11:01 EST 12/20/2019 23:17 EST Chelsi Fernandes DO PATHOLOGY ORDERABLES [facility] [address] [place] [address] documented in this encounter Visit Diagnoses Diagnosis Encounter for other general examination documented in this encounter Care Teams Green Prize Packer Relationship Specialty Start Date End Date Unknown, Provider, PCP - General 02/14/16 10/09/20 Beatrice Harrington FNP [address] [place] [address] [place] [phone] PCP - General 10/10/20 documented as of this encounter
--- OUTSIDE RECORDS SUMMARY | 2024-06-09 11:24 | XMS_ITS | Encounter Summary ---
Author Organization [facility] Address [address] [place] [address] Care Team Providers Care Media Marketing Manager Name Role Phone Unavailable Primary Care Provider Unavailabl e Encounter Details Date Type Department Care Team (Late st Contact Info) Description 05/19/2000 10:17 EDT Hospital Encounter [facility] [address] [place] [address] Christiano Mar MD [address] [place] [phone] Social History Tobacco Use Types Packs/Day Years [...]
--- OUTSIDE RECORDS SUMMARY | 2024-06-09 11:24 | XMS_ITS | Encounter Summary ---
Author Organization [facility] Address [address] [place] [address] Care Team Providers Care Knowledge Manager Name Role Phone Unavailable Primary Care Provider Unavailabl e Encounter Details Date Type Department Care Team (Latest Contact Info) Description 03/20/2000 16:28 EDT - 04/17/2000 11:59 EDT Hospital Encounter [facility] [address] [place] [address] Christiano Mar MD [address] [place] [phone] Discharge Disposition: Auto Discharge Social History Tobacco [...]
--- OUTSIDE RECORDS SUMMARY | 2024-06-09 11:24 | XMS_ITS | Encounter Summary ---
Author Organization [facility] Address [address] [place] [address] Care Team Providers Care Ms Sql Developer Name Role Phone Unavailable Primary Care Provider Unavailabl e Encounter Details Date Type Department Care Team (Late st Contact Info) Description 11/19/2000 9:37 EST Hospital Encounter [facility] - [facility] [address] [place] [address] Christiano Mar MD [address] [place] [phone] Unknown, ProviderMD Social History Tobacco Use Types Packs/Day Years [...] RNA BY PCR Routine 11/19/2000 17:00 EST IBC Routine 11/19/2000 17:00 EST HEPATITIS A TOTAL ANTIBODY W REFLEX Routine 11/19/2000 17:00 EST CERULOPLASMIN, S Routine 11/19/2000 17:0 0 EST HEPATITIS B CORE ANTIBODY (TOTAL) Routine 11/19/2000 17:00 EST HEPATITIS B SURFACE ANTIGEN Routine 11/19/2000 17:00 EST TRANSFERRIN Routine 11/19/2000 17:00 EST TSH Routine 11/19/2000 17:00 EST HDL Routine 11/19/2000 17:00 EST CHOLESTEROL Routine 11/19/2000 17:00 EST documented in this encounter Results * TSH (11/19/2000 17:00 EST) TSH 2.49 0.35 - 5.50 uIU/ml [facility] 11/19/2000 17:0 0 EST 11/20/2000 11:44 EST Christiano Mar MD CHEMISTRY & BLO OD GAS ORDERABLES Performing Organization Address [facility] Phone Number [facility] [address] [place] [address] * TRANSFERRIN (11/19/2000 17:00 EST) Transferrin 300 202 - 336 mg/dl [facility] 11/19/2000 17:0 0 EST 11/20/2000 11:44 EST Christiano Mar MD CHEMISTRY & BLO OD GAS ORDERABLES Performing Organization Address [facility] de Phone Number [facility] [address] [place] [address] * IBC (11/19/2000 17:00 EST) TIBC 363 225 - 425 ug/dl [facility] Comment:Note new reference r chely. 11/19/2000 17:0 0 EST 11/20/2000 11:44 EST Christiano Mar MD CHEMISTRY & BLO OD GAS ORDERABLES Performing Organization Address [facility] de Phone Number [facility] [address] [place] [address] * HDL (11/19/2000 17:00 EST) HDL 40 mg/dl [facility] Comment: Highly Desirable:>60 Desirable:35-60 High Risk:<35 11/19/2000 17:0 0 EST 11/20/2000 11:44 EST Christiano Mar MD CHEMISTRY & BLO OD GAS ORDERABLES Performing Organization Address [facility] de Phone Number [facility] [address] [place] [address] * HEPATITIS C ANTIBODY (11/19/2000 17:00 EST) Hepatitis C Ab Neg [facility] 11/19/2000 17:0 0 EST 11/20/2000 11:44 EST Christiano Mar MD CHEMISTRY & BLO OD GAS ORDERABLES Performing Organization Address [facility] de Phone Number [facility] [address] [place] [address] * HEPATITIS B CORE ANTIBODY (11/19/2000 17:00 EST) Hep B Core Ab Neg [facility] 11/19/2000 17:0 0 EST 11/20/2000 11:44 EST Christiano Mar MD CHEMISTRY & BLO OD GAS ORDERABLES Performing Organization Address [facility] de Phone Number [facility] [address] [place] [address] * HEPATITIS B SURFACE ANTIGEN (11/19/2000 17:00 EST) Hepatitis B Surface Ag Neg [facility] 11/19/2000 17:0 0 EST 11/20/2000 11:44 EST Christiano Mar MD CHEMISTRY & BLO OD GAS ORDERABLES Performing Organization Address [facility] de Phone Number [facility] [address] [place] [address] * HEPATITIS A TOTAL ANTIBODY (11/19/2000 17:00 EST) Hep A Antibody Neg [facility] 11/19/2000 17:0 0 EST 11/20/2000 11:44 EST Christiano Mar MD CHEMISTRY & BLO OD GAS ORDERABLES Performing Organization Address [facility] de Phone Number [facility] [address] [place] [address] * CHOLESTEROL (11/19/2000 17:00 EST) Pathologist [facility] Cholesterol 232 mg/dl [facility] Comment: Desirable:<200 Borderline:200-239 High Risk:>zr=160 11/19/2000 17:0 0 EST 11/20/2000 11:44 EST Christiano Mar MD CHEMISTRY & BLO OD GAS ORDERABLES Performing Organization Address [facility] de Phone [facility] [address] [place] [address] * CERULOPLASMIN (11/19/2000 17:00 EST) Cerulplasmin 29.7Unit: mg/dL ??(Note) -- EXPECTED VALUES -- ? (Ref Range) 22.9 to 43.1 ? TEST PERFORMED OR REFERRED BY [facility] ? [facility] ? [address] ? [place], [place] ??[address] ? [facility] 11/19/2000 17:0 0 EST 11/20/2000 11:44 EST Christiano Mar MD CHEMISTRY & BLO OD GAS ORDERABLES [facility] [address] [place] [address] documented in this encounter Visit Diagnoses Not on filedocumented in this encounter
--- OUTSIDE RECORDS SUMMARY | 2024-06-09 11:24 | XMS_ITS | Encounter Summary ---
Author Organization [facility] Address [address] [place] [address] Care Team Providers Care Date Pitter Name Role Phone Unavailable Primary Care Provider Unavailabl e Encounter Details Date Type Department Care Team (Latest Contact Info) Description 11/09/2000 15:07 EST Hospital Encounter [address] [address] Ivy Lopez MD Discharge Disposition: Home or Self Care Social History Tobacco Use Types Packs/Day Years Used Date Smoking Tobacco: Never Assessed Sex and Gender Information Value Date Recorded Sex Assigned at Not on file Gender Identity Male 02/13/2020 16:12 EDT Sexual Orientation Not on file documented as of this encounter Discharge Disposition Disposition Code Departure Means Destination Home or Self Care documented in this encounter Plan of Treatment Not on file documented as of this encounter Procedures Procedure Name Priority Date/Time Associated Diagnosis Comments RIBS UNI 2 VIEWS Routine 11/10/2000 13:1 4 EST HEPATIC FUNCTION PANEL (ALB,ALK PHOS,ALT,AST,DBIL,T OT BRYAN,TOT PROT) Routine 11/09/2000 17:00 EST documented in this encounter Results * RIBS UNI 2 VIEWS (11/10/2000 13:14 EST) Anatomical Region Laterality Modality Other 11/10/2000 13:1 4 EST Narrative 08/29/2009 1:19 EST rt sided rib pain r/o fx RIGHT RIBS, UNILATERAL, TWO VIEWS: 11/10/00, 1305 AP and oblique views of the right ribs were obtained. No rib fractures or other rib abnormalities are identified. Note that the first and 2nd ribs are incompletely included on these views. /sb Procedure Note Dia Hein MD - 08/29/2009 rt sided rib pain r/o fx RIGHT RIBS, UNILATERAL, TWO VIEWS: 11/10/00, 1305 AP and oblique views of the right ribs were obtained. No rib fractures or other rib abnormalities are identified. Note that the first and 2nd ribs are incompletely included on these views. /sb Ivy Lopez MD IMG DIAGNOSTIC IMAGI NG ORDERABLES * (ABNORMAL) LIVER FUNCTION TESTS (11/09/2000 17:00 EST) Albumin 4.2 3.0 - 5.5 g/dl [facility] Total Protein 7.1 6.0 - 8.5 g/dl [facility] Total Alkaline Phosphatase 87 38 - 126 U/L [facility] ALT 87(H) 15 - 75 U/L [facility] AST 35 8 - 50 U/L [facility] Unconjugated Bilirubin 0.3 0.1 - 1.1 mg/dl [facility] Conjugated Bilirubin 0.0 0.0 - 0.3 mg/dl [facility] Bilirubin, Total 0.4 0.2 - 1.3 mg/dl [facility] 11/09/2000 17:0 0 EST 11/09/2000 21:15 EST Ivy Lopez MD CHEMISTRY & BLOOD GA S ORDERABLES [facility] [address] [place] [address] documented in this encounter Visit Diagnoses Not on filedocumented in this encounter
--- OUTSIDE RECORDS SUMMARY | 2024-06-09 11:24 | XMS_ITS | Encounter Summary ---
Author Organization [facility] Address [address] [place] [address] Care Team Providers Care Race Car Driver Name Role Phone Unavailable Primary Care Provider Unavailabl e Encounter Details Date Type Department Care Team (Latest Contact Info) Description 09/25/2001 14:05 EST Hospital Encounter [facility] Emergency Department - [facility] [address] [place] [address] Emergency, Joe, MD Discharge Disposition: Home or Self Care [...]
--- OUTSIDE RECORDS SUMMARY | 2024-06-09 11:24 | XMS_ITS | Encounter Summary ---
Author Organization [facility] Address [address] [place] [address] Care Team Providers Care C Java Developer Name Role Phone Unavailable Primary Care Provider Unavailabl e Encounter Details Date Type Department Care Team (Latest Contact Info) Description 12/23/2000 7:38 EST - 12/23/2000 11:59 EST Hospital Encounter [facility] [address] [place] [address] Christiano Mar MD [address] [place] [phone] Discharge Disposition: Auto Discharge Social History [...] Procedure Name Priority Date/Time Associated Diagnosis Comments RAD US SCROTUM Routine 12/23/2000 9:46 EST RAD US ABDOMEN ONE ORGAN/QUADRANT Routine 12/23/2000 9:16 EST documented in this encounter Results * RAD US SCROTUM (12/23/2000 9:46 EST) Anatomical Region Laterality Modality Other 12/23/2000 9:46 EST Impressions 08/29/2009 1:26 EST IMPRESSION: 1) Unremarkable abdominal ultrasound. The gallbladder is of normal size, shape, and echotexture. There is no evidence for pericholecystic fluid or gallbladder wall thickening. There is no evidence for intrahepatic biliary dilatation. The common bile duct is slightly prominent at the upper limits of normal measuring approximately 5-6mm, the etiology and clinical significance of this is unclear. TESTICULAR ULTRASOUND 12/23/00 FINDINGS: Ultrasound of the testicles reveals no intratesticular masses on either side. The testicles are of normal size, shape, and echotexture bilaterally with appropriate Doppler flow identified bilaterally. There are two very small approximately 2cm epididymal cysts in the epididymal head on the right. There are two slightly larger epididymal cysts in the epididymal head on the left measuring approximately 5 and 3mm respectively. No abnormal fluid collections are identified. There is a small amount of fluid in the sacs surrounding both testicles. I believe this is within physiologic limits. IMPRESSION: 1) Unremarkable testicle ultrasound. There are no intratesticular masses identified. There is no evidence for significant hydrocele involving either testicle. There are small bilateral epididymal cysts; these are common findings of no clinical significance. /beronica Narrative 08/29/2009 1:26 EST RUQ AND TESTICULAR U/S, ABD PAIN, MID EPIGASTRIC PAIN, LT SCROTAL MASS , INCREASED IN SIZE R/O HEPATOBILIARY DZ, CYST VS TESTICULAR MASS ABDOMINAL ULTRASOUND 12/23/00 COMPARISON: 03/15/99 FINDINGS: The size, shape, and echotexture of the liver, spleen, pancreas, and kidneys are within normal limits. There are no abnormal masses or fluid collections identified. The common bile duct measures between 5-6mm. This is at the upper limits of normal for a patient of this age. However, there are no gallstones identified and there is no pericholecystic fluid. There is no intrahepatic biliary dilatation. The slight prominence of the common bile duct may be related to the patient's fasting status. Procedure Note Nic Ramirez, PT - 08/29/2009 RUQ AND TESTICULAR U/S, ABD PAIN, MID EPIGASTRIC PAIN, LT SCROTAL MASS , INCREASED IN SIZE R/O HEPATOBILIARY DZ, CYST VS TESTICULAR MASS ABDOMINAL ULTRASOUND 12/23/00 COMPARISON: 03/15/99 FINDINGS: The size, shape, and echotexture of the liver, spleen, pancreas, and kidneys are within normal limits. There are no abnormal masses or fluid collections identified. The common bile duct measures between 5-6mm. This is at the upper limits of normal for a patient of this age. However, there are no gallstones identified and there is no pericholecystic fluid. There is no intrahepatic biliary dilatation. The slight prominence of the common bile duct may be related to the patient's fasting status. IMPRESSION IMPRESSION: 1) Unremarkable abdominal ultrasound. The gallbladder is of normal size, shape, and echotexture. There is no evidence for pericholecystic fluid or gallbladder wall thickening. There is no evidence for intrahepatic biliary dilatation. The common bile duct is slightly prominent at the upper limits of normal measuring approximately 5-6mm, the etiology and clinical significance of this is unclear. TESTICULAR ULTRASOUND 12/23/00 FINDINGS: Ultrasound of the testicles reveals no intratesticular masses on either side. The testicles are of normal size, shape, and echotexture bilaterally with appropriate Doppler flow identified bilaterally. There are two very small approximately 2cm epididymal cysts in the epididymal head on the right. There are two slightly larger epididymal cysts in the epididymal head on the left measuring approximately 5 and 3mm respectively. No abnormal fluid collections are identified. There is a small amount of fluid in the sacs surrounding both testicles. I believe this is within physiologic limits. IMPRESSION: 1) Unremarkable testicle ultrasound. There are no intratesticular masses identified. There is no evidence for significant hydrocele involving either testicle. There are small bilateral epididymal cysts; these are common findings of no clinical significance. /beronica Christiano Mar MD IMG US ORDERABL ES * RAD US ABDOMEN ONE ORGAN/QUADRANT (12/23/2000 9:16 EST) Anatomical Region Laterality Modality Other 12/23/2000 9:16 EST Narrative 08/29/2009 1:26 EST RUQ AND TESTICULAR U/S, ABD PAIN, MID EPIGASTRIC PAIN, LT SCROTAL MASS , INCREASED IN SIZE R/O HEPATOBILIARY DZ, CYST VS TESTICULAR MASS Procedure Note Nic Ramirez, PT - 08/29/2009 RUQ AND TESTICULAR U/S, ABD PAIN, MID EPIGASTRIC PAIN, LT SCROTAL MASS , INCREASED IN SIZE R/O HEPATOBILIARY DZ, CYST VS TESTICULAR MASS Christiano Mar MD IMG US ORDERABL ES documented in this encounter Visit Diagnoses Not on filedocumented in this encounter
--- OUTSIDE RECORDS SUMMARY | 2024-06-09 11:24 | XMS_ITS | Referral Summary ---
Author Organization [facility] Address [address] [place] [address] Care Team Providers Care Electrolysis Engineer Name Role Phone Beatrice Harrington Primary Care Provider [phone] Social History Tobacco Use Types Packs/Day Years Used Date Smoking Tobacco: Never Assessed Sex and Gender Information Value Date Recorded Sex Assigned at Not on file Gender Identity Male 02/13/2020 16:12 EDT Sexual Orientation Not on file Plan of Treatment Not on file Procedures Procedure Name Priority Date/Time Associated Diagnosis [...] OD GAS ORDERABLES [facility] [address] [place] [address] from Last 3 Months or Most Recently Relevant to Health Maintenance Care Teams Electrolysis Engineer Relationship Specialty Start Date End Date Beatrice Harrington FNP [address] [facility] [address] [place] [phone] PCP - General 10/10/20
--- OUTSIDE RECORDS SUMMARY | 2024-06-09 11:24 | XMS_ITS | Encounter Summary ---
Author Organization [facility] Address [address] [place] [address] Care Team Providers Care Security Assurance Specialist Name Role Phone Unavailable Primary Care Provider Unavailabl e Encounter Details Date Type Department Care Team (Latest Contact Info) Description 12/01/2002 10:46 EST - 12/01/2002 11:59 EST Hospital Encounter [facility] [address] [place] [address] Xiomy Wilson PA Discharge Disposition: Auto Discharge Social History Tobacco [...] Priority Date/Time Associated Diagnosis Comments RAD US RETROPERITONEAL COMPLETE Routine 12/01/2002 11:14 EST documented in this encounter Results * RAD US RETROPERITONEAL COMPLETE (12/01/2002 11:14 EST) Anatomical Region Laterality Modality Other 12/01/2002 11:1 4 EST Narrative 07/16/2009 3:48 EDT RENAL U/S AND PRE-VOID BLADDER U/S, RECURRENT UTIS, NOCURIA R/O RENAL PATHOLOGY BILATERAL RENAL ULTRASOUND FINDINGS: The right kidney measures 10 cm pole to pole and the left kidney measures 11.4 cm pole to pole. There is no hydronephrosis. No cystic or solid lesions. No urinary tract calculi. The urinary bladder is partially distended and unremarkable. There is a 60 cc postvoid residual. /tims Procedure Note Haris Perdomo MD - 07/16/2009 RENAL U/S AND PRE-VOID BLADDER U/S, RECURRENT UTIS, NOCURIA R/O RENAL PATHOLOGY BILATERAL RENAL ULTRASOUND FINDINGS: The right kidney measures 10 cm pole to pole and the left kidney measures 11.4 cm pole to pole. There is no hydronephrosis. No cystic or solid lesions. No urinary tract calculi. The urinary bladder is partially distended and unremarkable. There is a 60 cc postvoid residual. /sherrill Xiomy KATZ US ORDERABLES documented in this encounter Visit Diagnoses Not on filedocumented in this encounter
--- OUTSIDE RECORDS SUMMARY | 2024-06-09 11:24 | XMS_ITS | Encounter Summary ---
Author Organization [facility] Address [address] [place] [address] Care Team Providers Care Job Setter Honing Name Role Phone Beatrice Harrington SANDRA Primary Care Provider [phone] Encounter Details Date Type Department Care Team (Late st Contact Info) Description 10/10/2020 Lab Requisition [facility] Pathology & Laboratory Medicine - [address] [address] Briseida Madden MD [address] [place] [address] [place], [place] [id number] Encounter for other general examination Social History [...] Date/Time Associated Diagnosis Comments SURGICAL PATHOLOGY Today 10/10/2020 10 :40 EST Encounter for other general examination documented in this encounter Results * SURGICAL PATHOLOGY (10/10/2020 10:40 EST) Final Diagnosis A. DUODENUM, BIOPSY: - Polypoid gastric heterotopia. B. STOMACH, ANTRUM, BIOPSY: - Gastric mucosa with no specific pathologic features. C. 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 - Negative for dysplasia. 10/15/2020 17:58 [facility] Attestation By the signature below, the attending physician certifies that they have 1) personally conducted a gross and/or microscopic examination of the described specimen(s), and/or personally interpreted the results of laboratory testing of the described specimen(s), and 2) personally rendered or confirmed the above diagnosis. 10/15/2020 17:58 [facility] at 1758 Clinical History Dysphagia, heartburn 10/15/2020 17:58 [facility] Gross Description A. Received in formalin labelled with proper patient identification (initials M, S) and duodenum bx are 2 raines-pink tissues measuring 0.2 x 0.1 x 0.1 cm and 0.3 x 0.2 x 0.2 cm. Submitted intact in A1. B. Received in formalin labelled with proper patient identification (initials M, S) and antrum bx are 3 light raines tissues ranging in size from 0.1 x 0.1 x 0.1 cm up to 0.2 x 0.2 x 0.1 cm. Submitted intact in B1. C. Received in formalin labelled with proper patient identification (initials M, S) and GE junction bx are 3 light raines tissues ranging in size from 0.3 x 0.1 x 0.1 cm up to 0.3 x 0.2 x 0.2 cm. Submitted intact in C1. MYNOR CRANDALL(ASCP) 10/10/2020 18:44 10/15/2020 17:58 [facility] Performing Lab [facility] 17:58 [facility] Scanned Images 10/15/2020 17:58 [facility] Tissue ENTIRE ESOPHAGUS / Unknown 10/10/2020 10:40 EST 10/10/2020 16:27 EST Tissue specimen (specimen) STOMACH STRUCTURE / Unknown 10/10/2020 10:40 EST 10/10/2020 16:27 EST Tissue specimen (specimen) ESOPHAGEAL STRUCTURE / Unknown 10/10/2020 10:40 EST 10/10/2020 16:27 EST Briseida Madden MD PATHOLOGY ORDERA SOB[facility] [address] [place] [address] documented in this encounter Visit Diagnoses Diagnosis Encounter for other general examination documented in this encounter Care Teams Job Setter Honing Relationship Specialty Start Date End Date Beatrice Harrington FNP [address] [phone] PCP - General 10/10/20 documented as of this encounter
--- OUTSIDE RECORDS SUMMARY | 2024-06-09 11:24 | XMS_ITS | Encounter Summary ---
Author Organization [facility] Address [address] [place] [address] Care Team Providers Care Heel Caser Name Role Phone Unavailable Primary Care Provider Unavailabl e Encounter Details Date Type Department Care Team (Latest Contact Info) Description 01/22/2000 15:54 EDT - 02/16/2000 11:59 EDT Hospital Encounter [facility] - Maple conversion [address] [place] [address] Christiano Mar MD [address] [place] [phone] Discharge Disposition: Auto Discharge Social History [...]
--- OUTSIDE RECORDS SUMMARY | 2024-06-09 11:24 | XMS_ITS | Encounter Summary ---
Author Organization [facility] Address [address] [place] [address] Care Team Providers Care Crude Tester Name Role Phone Unavailable Primary Care Provider Unavailabl e Encounter Details Date Type Department Care Team (Late st Contact Info) Description 06/16/2000 Results Only [facility] Family Medicine [address] [id number] Carmen Glez, [facility] [address] [place] [phone] Social History Tobacco Use Types Packs/Day Years Used Date Smoking Tobacco: Never Assessed Sex and Gender Information Value Date Recorded Sex Assigned at Not on file Gender Identity Male 02/13/2020 16:12 EDT Sexual Orientation Not on file documented as of this encounter Plan of Treatment Not on file documented as of this encounter Procedures Procedure Name Priority Date/Time Associated Diagnosis Comments N.GONORRHOEAE PROBE Routine 06/16/2000 2 0:00 EDT CHLAMYDIA TRACHOMATIS PROBE Routine 06/16/2000 20:00 EDT BACTERIAL CULTURE, URINE Routine 06/16/2000 19:00 EDT documented in this encounter Results * CHLAMYDIA TRACHOMATIS PROBE (06/16/2000 20:00 EDT) Specimen Description Genital [facility] Result No Chlamydia trachomatis DNA detected by big data lead mediated amplification. [facility] Report Status Final [id number] [facility] 06/16/2000 20:0 0 EDT 06/17/2000 11:31 EDT Carmen AMINP HISTORICAL LAB F OR SQ LOAD Performing Organization Address [facility] de Phone Number [facility] [address] [place] [address] * N.GONORRHOEAE PROBE (06/16/2000 20:00 EDT) Specimen Description Genital [facility] Result No Neisseria gonorrhoeae DNA detected by big data lead mediated amplification. [facility] Report Status Final [id number] [facility] 06/16/2000 20:0 0 EDT 06/17/2000 11:31 EDT Carmen AMINP HISTORICAL LAB F OR SQ LOAD Performing Organization Address [facility] de Phone Number [facility] [address] [place] [address] * BACTERIAL CULTURE, URINE (06/16/2000 19:00 EDT) Specimen Description Urine [facility] Result 10,000 to 100,000 CFU/ml STREPTOCOCCUS , ALPHA HEMOLYTIC [facility] Report Status Final [id number] [facility] 06/16/2000 19:0 0 EDT 06/16/2000 20:59 EDT Carmen Glez ENVIRONMENTAL MARKETING REPRESENTATIVE MICROBIOLOGY - G ENERAL ORDERABLES Performing Organization Address [facility] de Phone Number [facility] [address] [place] [address] documented in this encounter Visit Diagnoses Not on filedocumented in this encounter
--- OUTSIDE RECORDS SUMMARY | 2024-06-09 11:24 | XMS_ITS | Encounter Summary ---
Author Organization [facility] Address [address] [place] [address] Care Team Providers Care Medical Technician Name Role Phone Unavailable Primary Care Provider Unavailabl e Encounter Details Date Type Department Care Team (Late st Contact Info) Description 09/17/2000 12:27 EST Hospital Encounter [facility] - Other [address] [place] [id number] Muriel Sun, CAREER ADVISOR [address] [place] [phone] Unknown, Provider, Social History Tobacco Use Types Packs/Day Years Used Date Smoking Tobacco: Never Assessed Sex and Gender Information Value Date Recorded Sex Assigned at Not on file Gender Identity Male 02/13/2020 16:12 EDT Sexual Orientation Not on file documented as of this encounter Plan of Treatment Not on file documented as of this encounter Procedures Procedure Name Priority Date/Time Associated Diagnosis Comments COMPLETE BLOOD COUNT Routine 09/17/2000 18:00 EST LIPASE Routine 09/17/2000 18:00 EST HEPATIC FUNCTION PANEL (ALB,ALK PHOS,ALT,AST,DBIL,T OT BRYAN,TOT PROT) Routine 09/17/2000 18:00 EST documented in this encounter Results * (ABNORMAL) LIVER FUNCTION TESTS (09/17/2000 18:00 EST) Albumin 4.6 3.0 - 5.5 g/dl [facility] Total Protein 7.7 6.0 - 8.5 g/dl [facility] Total Alkaline Phosphatase 78 38 - 126 U/L [facility] ALT 101(H) 15 - 75 U/L [facility] AST 38 8 - 50 U/L [facility] Unconjugated Bilirubin 0.6 0.1 - 1.1 mg/dl [facility] Conjugated Bilirubin 0.0 0.0 - 0.3 mg/dl [facility] Bilirubin, Total 0.7 0.2 - 1.3 mg/dl [facility] 09/17/2000 18:0 0 EST 09/17/2000 21:30 EST Provider Unknown CHEMISTRY & BLOOD AZ S ORDERABLES Performing Organization Address [facility] de Phone Number [facility] [address] [place] [address] * LIPASE (09/17/2000 18:00 EST) Pathologist [facility] Lipase 118 0 - 210 U/L [facility] 09/17/2000 18:0 0 EST 09/17/2000 21:30 EST Provider Unknown CHEMISTRY & BLOOD GA S ORDERABLES Performing Organization Address [facility] de Phone Number [facility] [address] [place] [address] * HEMAGRAM (09/17/2000 18:00 EST) WBC 9.15 4.0 - 10.4 K/cmm [facility] RBC 5.47 4.36 - 5.78 M/cmm [facility] Hemoglobin 16.0 13.8 - 17.3 gm/dl [facility] HCT 45.9 39.5 - 50.2 % [facility] MCV 84 81 - 95 fl [facility] MCH 29.3 27.6 - 33.0 pg [facility] MCHC 34.9 32.8 - 36.4 gm/dl [facility] PLT 236 141 - 320 K/cmm [facility] RDW-CV 12.5 11.8 - 14.1 % [facility] 09/17/2000 18:0 0 EST 09/17/2000 21:30 EST Provider Unknown HEMATOLOGY & PF4 ORD ERABLES [facility] [address] [place] [address] documented in this encounter Visit Diagnoses Not on filedocumented in this encounter
--- OUTSIDE RECORDS SUMMARY | 2024-06-09 11:24 | XMS_ITS | Encounter Summary ---
Author Organization [facility] Address [address] [place] [address] Care Team Providers Care Court Recorder Name Role Phone Unknown, Provider Primary Care Provider Beatrice Harrington Primary Care Provider [phone] Encounter Details Date Type Department Care Team (Late st Contact Info) Description 10/05/2020 Lab Requisition [facility] Pathology & Laboratory Medicine - [address] [address] Outr Resulting Lab, Provider Social History Tobacco [...] Procedure Name Priority Date/Time Associated Diagnosis Comments DO NOT ORDER STANDALONE - [facility] COVID TEST Today 10/05/2020 9:24 EST COVID-19 TESTING Routine 10/05/2020 9:24 EST documented in this encounter Results * DO NOT ORDER STANDALONE - BROAD COVID TEST (10/05/2020 9:24 EST) COVID-19 rt-PCR Result NEGATIVE Negative 10/08/2020 12:45 EST [facility] Comment: 2019-novel Coronavirus (2019-nCoV) not detected by the qRT-PCR assay. Consider testing for other respiratory viruses or re-collecting for 2019-nCoV testing. Note: Optimum timing for peak viral levels during infections caused by 2019-nCoV have not been determined. Collection of multiple specimens from the same patient may be necessary to detect the virus. Limitations Positive results are indicative of active infection with SARS-CoV-2 but do not rule out bacterial infection or co-infection with other viruses. The agent detected may not be the definite cause of disease. In addition, detection of viral RNA may not indicate the presence of infectious virus or that SARS-CoV-2 is the causative agent for clinical symptoms. Negative results do not preclude SARS-CoV-2 infection and should not be used as the sole basis for patient management decisions. Negative results must be combined with clinical observations, patient history, and epidemiological information. False negative results may also occur if amplification inhibitors are present in the specimen or if inadequate numbers of organisms are present in the specimen. Optimum specimen types and timing for peak viral levels during infections caused by SARS-CoV-2 have not been fully determined. Collection of multiple specimens (types and time points) from the same patient may be necessary to detect the virus. The test was validated for use with upper respiratory specimens obtained via nasopharyngeal or oropharyngeal swabs in VTM, UTM, M4, M5, M6, saline, and MTM media. The performance of this test has not been established for other specimens. Specimens collected using other FDA recommended Specimen Collection Materials listed in the FDA COVID-19 [employer] communication (January 12, 2020) are processed with the caveat that they were not all validated for use with this test and the result must be interpreted in this context. Furthermore, a false negative results may occur if a specimen is improperly collected, transported or handled. If the virus mutates in the RT-PCR target region, SARS-CoV-2 may not be detected or may be detected less predictably. Inhibitors or other types of interference may produce a false negative result. An interference study evaluating the effect of common cold medications was not performed. This test is not FDA-cleared but its performance characteristics were established by our CLIA-certified, CAP-accredited, high complexity laboratory in accordance with CLIA regulations, [employer] (CAP) guidelines (Jan 05, 2020), and FDA guidance (Dec 17, 2019). This test is only for use under the Food and Drug Administration's Emergency Use Authorization. Swab ENTIRE NASOPHARYNX / Unknown 10/05/2020 9:24 EST 10/05/2020 16:23 EST Provider Outr Resulting Lab MICROBIOLOGY - GENERAL ORDERABLES [facility] [place], [place] * COVID-19 TESTING (10/05/2020 9:24 EST) COVID-19 rt-PCR Result NEGATIVE Negative 10/08/2020 17:03 EST [facility] Comment: 2019-novel Coronavirus (2019-nCoV) not detected by the qRT-PCR assay. Consider testing for other respiratory viruses or re-collecting for 2019-nCoV testing. Note: Optimum timing for peak viral levels during infections caused by 2019-nCoV have not been determined. Collection of multiple specimens from the same patient may be necessary to detect the virus. Limitations Positive results are indicative of active infection with SARS-CoV-2 but do not rule out bacterial infection or co-infection with other viruses. The agent detected may not be the definite cause of disease. In addition, detection of viral RNA may not indicate the presence of infectious virus or that SARS-CoV-2 is the causative agent for clinical symptoms. Negative results do not preclude SARS-CoV-2 infection and should not be used as the sole basis for patient management decisions. Negative results must be combined with clinical observations, patient history, and epidemiological information. False negative results may also occur if amplification inhibitors are present in the specimen or if inadequate numbers of organisms are present in the specimen. Optimum specimen types and timing for peak viral levels during infections caused by SARS-CoV-2 have not been fully determined. Collection of multiple specimens (types and time points) from the same patient may be necessary to detect the virus. The test was validated for use with upper respiratory specimens obtained via nasopharyngeal or oropharyngeal swabs in VTM, UTM, M4, M5, M6, saline, and MTM media. The performance of this test has not been established for other specimens. Specimens collected using other FDA recommended Specimen Collection Materials listed in the FDA COVID-19 [employer] communication (January 12, 2020) are processed with the caveat that they were not all validated for use with this test and the result must be interpreted in this context. Furthermore, a false negative results may occur if a specimen is improperly collected, transported or handled. If the virus mutates in the RT-PCR target region, SARS-CoV-2 may not be detected or may be detected less predictably. Inhibitors or other types of interference may produce a false negative result. An interference study evaluating the effect of common cold medications was not performed. This test is not FDA-cleared but its performance characteristics were established by our CLIA-certified, CAP-accredited, high complexity laboratory in accordance with CLIA regulations, [employer] of [employer] [employer] (CAP) guidelines (Jan 05, 2020), and FDA guidance (Dec 17, 2019). This test is only for use under the Food and Drug Administration's Emergency Use Authorization. Performing Lab [facility] 10/08/2020 17:[address] [facility] Swab 10/05/2020 9:24 EST 10/05/2020 16:23 EST Provider Outr Resulting Lab MICROBIOLOGY - GENERAL ORDERABLES [facility] [address] [place], [place] [id number] [place] [address] LABORATORY [place], [place] documented in this encounter Visit Diagnoses Not on filedocumented in this encounter Care Teams Court Recorder Relationship Specialty Start Date End Date Unknown, Provider, PCP - General 02/14/16 10/09/20 Beatrice Harrington FNP [address] [place] [phone] PCP - General 10/10/20 documented as of this encounter
--- OUTSIDE RECORDS SUMMARY | 2024-06-09 11:24 | XMS_ITS | Encounter Summary ---
Author Organization [facility] Address [address] [place] [address] Care Team Providers Care Artificial Log Machine Operator Name Role Phone Unavailable Primary Care Provider Unavailabl e Encounter Details Date Type Department Care Team (Late st Contact Info) Description 04/24/2000 10:33 EDT Hospital Encounter [facility] - Maple conversion [address] [place] [address] Christiano Mar MD [address] [place] [phone] Social History Tobacco Use Types Packs/Day [...]
--- OUTSIDE RECORDS SUMMARY | 2024-06-09 11:24 | XMS_ITS | Encounter Summary ---
Author Organization [facility] Address [address] [place] [address] Care Team Providers Care Machine Ironer Name Role Phone Unavailable Primary Care Provider Unavailabl e Encounter Details Date Type Department Care Team (Late st Contact Info) Description 11/17/2002 Results Only [address] [address] Xiomy Wilson PA Social History Tobacco Use Types Packs/Day Years Used Date Smoking Tobacco: Never Assessed Sex and Gender Information Value Date Recorded Sex Assigned at Not on file Gender Identity Male 02/13/2020 16:12 EDT Sexual Orientation Not on file documented as of this encounter Plan of Treatment Not on file documented as of this encounter Procedures Procedure Name Priority Date/Time Associated Diagnosis Comments N. GONORRHOEAE AMPLIFIED PROBE Routine 11/17/2002 15:38 EST ZZCHLAMYDIA TRACHOMATIS AMPLIFIED PROBE Routine 11/17/2002 15:38 EST BACTERIAL CULTURE, URINE Routine 11/17/2002 15:38 EST documented in this encounter Results * N. GONORRHOEAE AMPLIFIED PROBE (11/17/2002 15:38 EST) Result No Neisseria gonorrhoeae DNA detected by bilingual secretary mediated amplification. [facility] Report Status Final [id number] [facility] Specimen Description Urine Test added by phone [facility] 11/17/2002 15:3 8 EST 11/21/2002 7:22 EST Xiomy LOWE MICROBIOLOGY - GENER AL ORDERABLES Performing Organization Address [facility] de Phone Number [facility] [address] [place] [address] * CHLAMYDIA TRACHOMATIS AMPLIFIED PROBE (11/17/2002 15:38 EST) Specimen Description Urine [facility] Result No Chlamydia trachomatis DNA detected by bilingual secretary mediated amplification. [facility] Report Status Final [id number] [facility] 11/17/2002 15:3 8 EST 11/17/2002 17:40 EST Xiomy LOWE MICROBIOLOGY - GENER AL ORDERABLES Performing Organization Address [facility] de Phone Number [facility] [address] [place] [address] * BACTERIAL CULTURE, URINE (11/17/2002 15:38 EST) Specimen Description Urine [facility] Result Greater than 100,000 CFU/ml STREPTOCOCCUS , BETA HEMOLYTIC GROUP B (STREPTOCOCCU S AGALACTIAE) [facility] Report Status Final [id number] [facility] 11/17/2002 15:3 8 EST 11/17/2002 17:40 EST Xiomy LOWE MICROBIOLOGY - GENER AL ORDERABLES Performing Organization Address [facility] de Phone Number [facility] [address] [place] [address] documented in this encounter Visit Diagnoses Not on filedocumented in this encounter
--- OUTSIDE RECORDS SUMMARY | 2024-06-09 11:24 | XMS_ITS | Encounter Summary ---
Author Organization [facility] Address [address] [place] [address] Care Team Providers Care Aprn Name Role Phone Unavailable Primary Care Provider Unavailabl e Encounter Details Date Type Department Care Team (Late st Contact Info) Description 02/19/2000 15:02 EDT Hospital Encounter [facility] - Maple conversion [address] [place] [address] Christiano Mar MD [address] [place] [phone] Social History Tobacco Use Types Packs/Day [...]
--- OUTSIDE RECORDS SUMMARY | 2024-06-09 11:24 | XMS_ITS | Encounter Summary ---
Author Organization [facility] Address [address] [place] [address] Care Team Providers Care Wind Field Service Manager Name Role Phone Unavailable Primary Care Provider Unavailabl e Encounter Details Date Type Department Care Team (Latest Contact Info) Description 11/17/2002 8:53 EST - 11/17/2002 11:59 EST Hospital Encounter [facility] - Other [address] [place] [address] Xiomy Wilson PA Unknown, Provider, Discharge Disposition: Auto Discharge Social History Tobacco [...]
[2024-06-09 16:03] LABS: ALT 97 U/L (16-63); AST 38 U/L (15-37); Albumin 4.4 g/dL (3.4-5.0); Alkaline Phosphatase 88 U/L (46-116); Anion Gap 9.5 mmol/L (3-11); BUN 17 mg/dL (7-18); Bilirubin, Total 0.63 mg/dL (0.2-1.0); CO2 27.5 mmol/L (21.0-32.0); CREATININE 1.1 mg/dL (0.70-1.30); Calcium 9.2 mg/dL (8.5-10.1); Calculated LDL 147 mg/dL (<100); Chloride 104 mmol/L (98-107); Cholesterol 207 mg/dL (<200); Estimated GFR 82.29 (mL/min/1.73m2); Glucose 111 mg/dL (74-106); HDL Cholesterol 33 mg/dL (40-60); Magnesium 2.2 mg/dL (1.8-2.4); Potassium 4.7 mmol/L (3.5-5.1); Sodium 141 mmol/L (136-145); Total Protein 7.3 g/dL (6.4-8.2); Triglyceride 137 mg/dL (<150); Vitamin B12 515 pg/mL (193-986)
[2024-06-09 16:09] LABS: COMMENT (LAB VIEW ONLY) 240.29 mg/dL; Microalb ug/mg Crea 12.9 ug/mg Cr
== END 2024-06-09 11:18 | disposition home or self-care (01) ==
LOC: NCHCN 11:17
PROVIDERS: PCP Nurse Practitioner Family; Visit Provider Nurse Practitioner Family
DX: I10 Essential (primary) hypertension (principal); Z87.440 Personal history of urinary (tract) infections
CPT/HCPCS: 80053; 80061; 82043; 82570; 82607; 83735; 87086

== ENCOUNTER 2024-09-21 09:17 | Outpatient (REF) | payer BC, SELFPAY | END 2024-09-21 09:18 | disposition home or self-care (01) | LOC: LBN 09:17 | PROVIDERS: PCP Nurse Practitioner Family; Visit Provider Nurse Practitioner Gerontology | DX: R82.90 Unspecified abnormal findings in urine (principal); R39.9 Unspecified symptoms and signs involving the genitourinary system; R33.9 Retention of urine, unspecified | CPT/HCPCS: 87077; 87086 ==

== ENCOUNTER 2025-02-13 12:31 | Outpatient (REF) | payer BC, SELFPAY | END 2025-02-13 12:32 | disposition home or self-care (01) | LOC: NCHCN 12:31 | PROVIDERS: PCP Nurse Practitioner Family; Visit Provider Family Medicine | DX: R30.0 Dysuria (principal) | CPT/HCPCS: 87086 ==

== ENCOUNTER 2025-05-30 15:14 | Outpatient (REF) | payer BC, SELFPAY | END 2025-05-30 15:15 | disposition home or self-care (01) | LOC: NCHCN 15:14 | PROVIDERS: PCP Nurse Practitioner Family; Visit Provider Nurse Practitioner Family | DX: Z87.440 Personal history of urinary (tract) infections (principal); Z09 Encounter for follow-up examination after completed treatment for conditions other than malignant neoplasm; R82.89 Other abnormal findings on cytological and histological examination of urine | CPT/HCPCS: 87086 ==

== ENCOUNTER 2025-07-04 15:07 | Outpatient (REF) | payer BC, SELFPAY ==
[2025-07-04 14:50] LABS: Glucose Negative (Negative)
[2025-07-04 15:07] LABS: C & S Indicated? Yes; RBC 0-2 HPF (0-2); WBC >50 HPF (0-5)
[2025-07-05 09:25] LABS: PSA, Diagnostic 1.2 ng/mL (<=3.5)
== END 2025-07-04 15:08 | disposition home or self-care (01) ==
LOC: NCHCN 15:07
PROVIDERS: PCP Nurse Practitioner Family; Visit Provider Nurse Practitioner Family
DX: Z87.440 Personal history of urinary (tract) infections (principal)
CPT/HCPCS: 81003; 81015; 84153; 87086

== ENCOUNTER 2025-09-27 00:41 | Outpatient (CLI) | payer BC, SELFPAY ==
[2025-09-28 09:18] LABS: PSA, Screening 0.9 ng/mL (<=3.5)
== END 2025-09-27 00:42 | disposition home or self-care (01) ==
LOC: LBO 00:41
PROVIDERS: PCP Nurse Practitioner Family; Visit Provider Nurse Practitioner Gerontology
DX: R39.9 Unspecified symptoms and signs involving the genitourinary system (principal)
CPT/HCPCS: 36415; 84153

== ENCOUNTER 2025-10-04 10:22 | Outpatient (CLI) | payer BC, SELFPAY ==
[2025-10-04 11:09] LABS: BUN 16 mg/dL (9-23)
== END 2025-10-04 10:23 | disposition home or self-care (01) ==
LOC: LBO 10:22
PROVIDERS: PCP Nurse Practitioner Family; Visit Provider Nurse Practitioner Gerontology
DX: R33.9 Retention of urine, unspecified (principal)
CPT/HCPCS: 36415; 84520; 82565